=== PATIENT | male | born 1955 ===

== ENCOUNTER 2017-04-08 17:52 | Observation (INO) | payer MEDICARE, OTHER ==
--- NOTE | 2017-04-08 18:24 | ED PDOC ---
HPI: General Adult Time Seen by Provider: 04/08/17 18:10 Chief Complaint (Nursing): Abnormal Labs Chief Complaint (Provider): Abnormal Labs History Per: Patient, EMS History/Exam Limitations: no limitations Additional Complaint(s): William Casiano is a 61 year old male with a history of diabetes and hypertension that was brought in by EMS after being found dazed and confused in the street. Paramedics stated that glucose Accucheck at scene was 46, and that patient responded to IV glucose by becoming awake and alert. Patient states that he has no recollection of the event, and that he took his insulin and Metformin this morning, and ate as normal. He denies any chest pain, palpitations, or headache. Past Medical History Reviewed: Historical Data, Nursing Documentation, Vital Signs Vital Signs: Last Vital Signs Temp 98.6 F 04/08/17 17:54 Pulse 75 04/08/17 17:54 Resp 18 04/08/17 17:54 BP 171/101 H 04/08/17 17:54 Pulse Ox 99 04/08/17 18:29 - Medical History PMH: Diabetes, HTN - Family History Family History: States: Unknown Family Hx - Allergies Allergies/Adverse Reactions: Allergies Allergy/AdvReac Type Severity Reaction Status Date / Time No Known Allergies Allergy Verified 04/08/17 17:54 Review of Systems Constitutional: Positive for: Other (low blood glucose) Cardiovascular: Negative for: Chest Pain, Palpitations Neurological: Negative for: Headache Physical Exam - Reviewed Nursing Documentation Reviewed: Yes Vital Signs Reviewed: Yes - Physical Exam Appears: Positive for: Non-toxic, No Acute Distress Head Exam: Positive for: ATRAUMATIC, NORMOCEPHALIC Skin: Positive for: Normal Color, Warm Eye Exam: Positive for: Normal appearance, EOMI, PERRL Cardiovascular/Chest: Positive for: Regular Rate, Rhythm. Negative for: Murmur Respiratory: Positive for: Normal Breath Sounds. Negative for: Wheezing Gastrointestinal/Abdominal: Positive for: Normal Exam, Soft. Negative for: Tenderness Extremity: Positive for: Normal ROM. Negative for: Tenderness, Swelling Neurologic/Psych: Positive for: Alert, Oriented. Negative for: Motor/Sensory Deficits - Laboratory Results Result Diagrams: 04/08/17 19:00 04/08/17 19:58 - ECG O2 Sat by Pulse Oximetry: 99 (RA) Pulse Ox Interpretation: Normal Medical Decision Making Medical Decision Making: Impression: Low Blood Glucose Plan: * EKG * CMP * CBC * Dextrose 5% * Reevaluation Scribe Attestation: Documented by Shira Crews, acting as a scribe for Jeremy Dacosta MD. Provider Scribe Attestation: All medical record entries made by the Scribe were at my direction and personally dictated by me. I have reviewed the chart and agree that the record accurately reflects my personal performance of the history, physical exam, medical decision making, and the department course for this patient. I have also personally directed, reviewed, and agree with the discharge instructions and disposition. Disposition - Clinical Impression Clinical Impression: Hypoglycemia - Patient ED Disposition Is Patient to be Admitted: Yes - Disposition Disposition Time: 20:48 Condition: FAIR Forms: [email or web address] (Persian) - Pt Status Changed To: Hospital Disposition Of: Observation - POA Present On Arrival: None
[2017-04-08] MEDS: Dextrose 5%/0.45% NS 1,000 ML IV SCH (18:47)
[2017-04-08 19:14] LABS: BASO % 0.3 % (0.0-2.0); EOS # 0.1 K/uL (0.0-0.7); EOS % 1.1 % (0.0-4.0); HEMOGLOBIN 9.7 g/dL (12.0-18.0); LYMPH % 12.6 % (20.0-40.0); MEAN CELL VOLUME 91.9 fl (80.0-94.0); MEAN CORPUSCULAR HEMOGLOBIN 27.9 pg (27.0-31.0); MEAN CORPUSCULAR HGB CONC 30.3 g/dL (33.0-37.0); MEAN PLATELET VOLUME 9.7 fl (7.2-11.7); MONO # 0.5 K/uL (0.0-0.8); MONO % 5.6 % (0.0-10.0); NEUT # 6.6 K/uL (1.8-7.0); NEUT % 80.4 % (50.0-75.0); NRBC % 0.1 % (0.0-0.0); RBC 3.46 Mil/uL (4.40-5.90); RED CELL DISTRIBUTION WIDTH 15.6 % (11.5-14.5); WHITE BLOOD COUNT 8.2 K/uL (4.8-10.8)
[2017-04-08 20:37] LABS: ALB/GLOB RATIO 1.2 (1.0-2.1); ALBUMIN 4.1 g/dL (3.5-5.0); ALT/SGPT 31 U/L (21-72); AST/SGOT 22 U/L (17-59); BLOOD UREA NITROGEN 27 mg/dl (9-20); CALCIUM 9.7 mg/dL (8.4-10.2); GFR AFRICAN-AMERICAN > 60; GFR NON-AFRICAN AMERICAN 51
[2017-04-08] MEDS ORDERED: Naproxen 500 MG TAB PO ONE (21:23)
[2017-04-09 06:22] LABS: ALB/GLOB RATIO 1.2 (1.0-2.1); ALBUMIN 4.1 g/dL (3.5-5.0); ALT/SGPT 31 U/L (21-72); AST/SGOT 21 U/L (17-59); BLOOD UREA NITROGEN 27 mg/dl (9-20); CALCIUM 9.8 mg/dL (8.4-10.2); GFR AFRICAN-AMERICAN > 60; GFR NON-AFRICAN AMERICAN 51; HDL CHOLESTEROL 47 MG/DL (30-70)
[2017-04-09 06:33] LABS: LDL CHOLESTEROL 89 mg/dL (0-129)
[2017-04-09] MEDS: Dextrose 5%/0.45% NS 1,000 ML IV SCH (06:35)
[2017-04-09] MEDS ORDERED: Insulin Regular 100 units/ml SC SCH (07:30)
[2017-04-09] MEDS: Insulin Regular 100 units/ml SC SCH ×2 (08:02→13:13)
[2017-04-09 08:18] VITALS: RESP 20
--- NOTE | 2017-04-09 08:35 | CARD ---
APPROVED REPORT EKG Measurement Heart [id number] <Conclusion> Normal sinus rhythm Normal ECG
[2017-04-09] MEDS ORDERED: Pantoprazole 20 mg EC Tab PO SCH (09:00)
[2017-04-09] MEDS ORDERED: Enoxaparin 40 mg Syringe SC SCH (09:00)
[2017-04-09 09:09] LABS: HEMOGLOBIN 13.3 g/dL (12.0-18.0); MEAN CORPUSCULAR HEMOGLOBIN 27.9 pg (27.0-31.0); MEAN CORPUSCULAR HGB CONC 33.6 g/dL (33.0-37.0); RBC 4.77 Mil/uL (4.40-5.90); RED CELL DISTRIBUTION WIDTH 14.4 % (11.5-14.5); WHITE BLOOD COUNT 7.5 K/uL (4.8-10.8)
[2017-04-09 09:14] LABS: MEAN CELL VOLUME 83.2 fl (80.0-94.0)
--- NOTE | 2017-04-09 11:09 | RAD ---
HISTORY: Diabetes mellitus. COMPARISON: 04/20/2009. TECHNIQUE: Chest PA and lateral FINDINGS: LUNGS: No active pulmonary disease. PLEURA: No significant pleural effusion identified. No pneumothorax apparent. CARDIOVASCULAR: No radiographic findings to suggest acute or significant cardiovascular disease. OSSEOUS STRUCTURES: No significant abnormalities. VISUALIZED UPPER ABDOMEN: Normal. OTHER FINDINGS: None. IMPRESSION: No active disease. No significant interval change compared to the prior examination(s).
[2017-04-09 12:41] VITALS: BP 133/75; PULSE 73; TEMP 98.1; O2SAT 96
--- NOTE | 2017-04-09 12:45 | RAD ---
PROCEDURE: Radiographs of the Left Shoulder HISTORY: Pain. No history of recent/ related trauma provided COMPARISON: No prior. FINDINGS: BONES: Normal. No fracture. JOINTS: Normal. Glenohumeral and acromioclavicular joints preserved. No osteoarthritis. SOFT TISSUES: Normal. OTHER FINDINGS: None. IMPRESSION: Normal radiographs of the left shoulder.
--- NOTE | 2017-04-09 16:14 | CP.PCM.HP ---
History of Present Illness - History of Present Illness History of Present Illness: 61 yr old M brought in to ED by ambulance for altered mental status and hypoglycemia. PMHx includes IDDM Type 2 and HTN. Denies chest pain, SOB, weakness, dizziness, nausea, vomiting or diarrhea. Per EMS records, patient became awake and alert s/p administration of IV glucose in the field. Patient reports he is adherent to his medications and had recently started to eat healthier without adjusting his insulin dose. PMD: Dr. Ahn Specialists: William Harrison-cardiology; Jeffery Adam- urology PMHx: IDDM Type 2 and HTN SurgHx: cataract surgery FMHx: mother at 56 from NH, HTN; father at 78 from AIDS complications , 4 siblings have DM Type 2 SocHx: denies tobacco, Etoh or drugs Medications: see medication reconciliation (Humulin and Lantus) Allergies: NKDA Present on Admission - Present on Admission Any Indicators Present on Admission: No History of DVT/PE: No History of Uncontrolled Diabetes: No Urinary Catheter: No Decubitus Ulcer Present: No History Surgical Site Infection Following: None Review of Systems - Review of Systems All systems: reviewed and no additional remarkable complaints except (for what is mentioned in the HPI) - Constitutional Constitutional: absent: Chills, Fever, Weight Loss - EENT Eyes: absent: Blurred Vision, Change in Vision Ears: absent: Disequilibrium, Dizziness Nose/Mouth/Throat: absent: Nasal Congestion, Nasal Discharge - Cardiovascular Cardiovascular: absent: Chest Pain, Dyspnea - Respiratory Respiratory: absent: Hemoptysis - Gastrointestinal Gastrointestinal: absent: Abdominal Pain, Nausea, Vomiting - Genitourinary Genitourinary: absent: Difficulty Urinating, Dysuria - Musculoskeletal Musculoskeletal: absent: Arthralgias, Muscle Weakness - Integumentary Integumentary: absent: Bleeding Lesions - Neurological Neurological: absent: Confusion, Focal Weakness - Psychiatric Psychiatric: absent: Anxiety - Endocrine Endocrine: absent: Polydipsia, Polyuria - Hematologic/Lymphatic Hematologic: absent: Easy Bleeding, Easy Bruising Past Patient History - Past Social History Smoking Status: Never Smoked - CARDIAC Hx Cardiac Disorders: Yes - ENDOCRINE/METABOLIC Hx Endocrine Disorders: Yes - MUSCULOSKELETAL/RHEUMATOLOGICAL Hx Falls: No - PSYCHIATRIC Hx Substance Use: No - ANESTHESIA Hx Anesthesia: No Hx Anesthesia Reactions: No Meds Allergies/Adverse Reactions: Allergies Allergy/AdvReac Type Severity Reaction Status Date / Time No Known Allergies Allergy Verified 04/08/17 17:54 Physical Exam - Constitutional Appears: No Acute Distress Additional comments: obese - Head Exam Head Exam: ATRAUMATIC, NORMOCEPHALIC - Eye Exam Eye Exam: EOMI Pupil Exam: PERRL - ENT Exam ENT Exam: Mucous Membranes Moist - Neck Exam Neck exam: Positive for: Full Rom. Negative for: Lymphadenopathy - Respiratory Exam Respiratory Exam: Clear to Auscultation Bilateral, NORMAL BREATHING PATTERN - Cardiovascular Exam Cardiovascular Exam: REGULAR RHYTHM, +S1, +S2 - GI/Abdominal Exam GI & Abdominal Exam: Normal Bowel Sounds, Soft (obese). absent: Tenderness - Extremities Exam Extremities exam: Positive for: full ROM (venous stasis skin changes bilaterally ). Negative for: pedal edema - Neurological Exam Neurological exam: Alert, CN II-XII Intact, Oriented x3 - Psychiatric Exam Psychiatric exam: Normal Affect, Normal Mood - Skin Skin Exam: Dry, Intact, Normal Color, Warm Results - Vital Signs Recent Vital Signs: Last Vital Signs Temp 98.1 F 04/09/17 12:40 Pulse 73 04/09/17 12:40 Resp 20 04/09/17 12:40 BP 133/75 04/09/17 12:40 Pulse Ox 96 04/09/17 12:40 - Labs Result Diagrams: 04/09/17 05:30 04/09/17 05:30 Labs: Laboratory Results - last 24 hr 04/08/17 04/08/17 04/08/17 18:04 19:00 19:00 WBC 8.2 RBC 3.46 L Hgb 9.7 L Hct 31.8 L MCV 91.9 MCH 27.9 MCHC 30.3 L RDW 15.6 H Plt Count 128 L MPV 9.7 Neut % (Auto) 80.4 H Lymph % (Auto) 12.6 L [place] % (Auto) 5.6 Eos % (Auto) 1.1 Baso % (Auto) 0.3 Neut # 6.6 Lymph # 1.0 [place] # 0.5 Eos # 0.1 Baso # 0.0 Sodium Cancelled Potassium Cancelled Chloride Cancelled Carbon Dioxide Cancelled Anion Gap Cancelled BUN Cancelled Creatinine Cancelled Est GFR ( Amer) Cancelled Est GFR (Non-Af Amer) Cancelled POC Glucose (mg/dL) 74 Random Glucose Cancelled Hemoglobin A1c Calcium Cancelled Total Bilirubin Cancelled AST Cancelled ALT Cancelled Alkaline Phosphatase Cancelled Total Protein Cancelled Albumin Cancelled Globulin Cancelled Albumin/Globulin Ratio Cancelled Triglycerides Cholesterol LDL Cholesterol Direct HDL Cholesterol TSH 3rd Generation 04/08/17 04/08/17 04/09/17 19:58 23:02 04:08 WBC RBC Hgb Hct MCV MCH MCHC RDW Plt Count MPV Neut % (Auto) Lymph % (Auto) [place] % (Auto) Eos % (Auto) Baso % (Auto) Neut # Lymph # [place] # Eos # Baso # Sodium 139 Potassium 4.4 Chloride 99 Carbon Dioxide 27 Anion Gap 17 BUN 27 H Creatinine 1.4 Est GFR ( Amer) > 60 Est GFR (Non-Af Amer) 51 POC Glucose (mg/dL) 119 H 82 Random Glucose 307 H Hemoglobin A1c Calcium 9.7 Total Bilirubin 0.3 AST 22 ALT 31 Alkaline Phosphatase 44 Total Protein 7.5 Albumin 4.1 Globulin 3.4 Albumin/Globulin Ratio 1.2 Triglycerides Cholesterol LDL Cholesterol Direct HDL Cholesterol TSH 3rd Generation 04/09/17 04/09/17 04/09/17 05:30 05:30 05:30 WBC 7.5 RBC 4.77 Hgb 13.3 D Hct 39.7 MCV 83.2 D MCH 27.9 MCHC 33.6 RDW 14.4 Plt Count 182 MPV Neut % (Auto) Lymph % (Auto) [place] % (Auto) Eos % (Auto) Baso % (Auto) Neut # Lymph # [place] # Eos # Baso # Sodium 142 Potassium 4.7 Chloride 103 Carbon Dioxide 28 Anion Gap 16 BUN 27 H Creatinine 1.4 Est GFR ( Amer) > 60 Est GFR (Non-Af Amer) 51 POC Glucose (mg/dL) Random Glucose 98 Hemoglobin A1c 7.1 H Calcium 9.8 Total Bilirubin 0.4 AST 21 ALT 31 Alkaline Phosphatase 47 Total Protein 7.4 Albumin 4.1 Globulin 3.3 Albumin/Globulin Ratio 1.2 Triglycerides 90 Cholesterol 168 LDL Cholesterol Direct 89 HDL Cholesterol 47 TSH 3rd Generation 2.34 04/09/17 04/09/17 05:31 10:54 WBC RBC Hgb Hct MCV MCH MCHC RDW Plt Count MPV Neut % (Auto) Lymph % (Auto) [place] % (Auto) Eos % (Auto) Baso % (Auto) Neut # Lymph # [place] # Eos # Baso # Sodium Potassium Chloride Carbon Dioxide Anion Gap BUN Creatinine Est GFR ( Amer) Est GFR (Non-Af Amer) POC Glucose (mg/dL) 103 242 H Random Glucose Hemoglobin A1c Calcium Total Bilirubin AST ALT Alkaline Phosphatase Total Protein Albumin Globulin Albumin/Globulin Ratio Triglycerides Cholesterol LDL Cholesterol Direct HDL Cholesterol TSH 3rd Generation Assessment & Plan - Assessment and Plan (Free Text) Assessment: 61 yr old M admitted for altered mental status and hypoglycemia. -admit to telemetry -D5 IV at 100mls/hr -f/u HbA1c, CMP, lipid panel, TSH, vit B12 -moderate carbohydrate diet -insulin detemir 20 units QHS -regular inuslin coverage scale ACHS -hypoglycemia protocol -DVT prophylaxis: Lovenox 40mg SC QD - Date & Time Date: 04/09/17 Time: 07:45
--- NOTE | 2017-04-09 16:24 | CP.PCM.DIS ---
Provider - Provider Date of Admission: 04/08/17 20:45 Attending physician: Amrik Angel MD Primary care physician: Dr. Lorenzana Time Spent in preparation of Discharge (in minutes): 30 Diagnosis - Discharge Diagnosis (1) Altered mental status Status: Resolved Priority: Low (2) Hypoglycemia Status: Resolved Priority: Low Hospital Course - Lab Results Lab Results: Most Recent Lab Values WBC 7.5 K/uL (4.8-10.8) 04/09/17 05:30 RBC 4.77 Mil/uL (4.40-5.90) 04/09/17 05:30 Hgb 13.3 g/dL (12.0-18.0) D 04/09/17 05:30 Hct 39.7 % (35.0-51.0) 04/09/17 05:30 MCV 83.2 fl (80.0-94.0) D 04/09/17 05:30 MCH 27.9 pg (27.0-31.0) 04/09/17 05:30 MCHC 33.6 g/dL (33.0-37.0) 04/09/17 05:30 RDW 14.4 % (11.5-14.5) 04/09/17 05:30 Plt Count 182 K/uL (130-400) 04/09/17 05:30 MPV 9.7 fl (7.2-11.7) 04/08/17 19:00 Neut % (Auto) 80.4 % (50.0-75.0) H 04/08/17 19:00 Lymph % (Auto) 12.6 % (20.0-40.0) L 04/08/17 19:00 [place] % (Auto) 5.6 % (0.0-10.0) 04/08/17 19:00 Eos % (Auto) 1.1 % (0.0-4.0) 04/08/17 19:00 Baso % (Auto) 0.3 % (0.0-2.0) 04/08/17 19:00 Neut # 6.6 K/uL (1.8-7.0) 04/08/17 19:00 Lymph # 1.0 K/uL (1.0-4.3) 04/08/17 19:00 [place] # 0.5 K/uL (0.0-0.8) 04/08/17 19:00 Eos # 0.1 K/uL (0.0-0.7) 04/08/17 19:00 Baso # 0.0 K/uL (0.0-0.2) 04/08/17 19:00 Sodium 142 mmol/l (132-148) 04/09/17 05:30 Potassium 4.7 MMOL/L (3.6-5.0) 04/09/17 05:30 Chloride 103 mmol/L (98-107) 04/09/17 05:30 Carbon Dioxide 28 mmol/L (22-30) 04/09/17 05:30 Anion Gap 16 (10-20) 04/09/17 05:30 BUN 27 mg/dl (9-20) H 04/09/17 05:30 Creatinine 1.4 mg/dl (0.8-1.5) 04/09/17 05:30 Est GFR ( Amer) > 60 04/09/17 05:30 Est GFR (Non-Af Amer) 51 04/09/17 05:30 POC Glucose (mg/dL) 242 mg/dL (65-110) H 04/09/17 10:54 Random Glucose 98 mg/dL (75-110) 04/09/17 05:30 Hemoglobin A1c 7.1 % (4.2-6.5) H 04/09/17 05:30 Calcium 9.8 mg/dL (8.4-10.2) 04/09/17 05:30 Total Bilirubin 0.4 mg/dl (0.2-1.3) 04/09/17 05:30 AST 21 U/L (17-59) 04/09/17 05:30 ALT 31 U/L (21-72) 04/09/17 05:30 Alkaline Phosphatase 47 U/L (38-126) 04/09/17 05:30 Total Protein 7.4 G/DL (6.3-8.2) 04/09/17 05:30 Albumin 4.1 g/dL (3.5-5.0) 04/09/17 05:30 Globulin 3.3 gm/dL (2.2-3.9) 04/09/17 05:30 Albumin/Globulin Ratio 1.2 (1.0-2.1) 04/09/17 05:30 Triglycerides 90 mg/DL (0-149) 04/09/17 05:30 Cholesterol 168 mg/dL (0-199) 04/09/17 05:30 LDL Cholesterol Direct 89 mg/dL (0-129) 04/09/17 05:30 HDL Cholesterol 47 MG/DL (30-70) 04/09/17 05:30 TSH 3rd Generation 2.34 mIU/ML (0.46-4.68) 04/09/17 05:30 - Hospital Course Hospital Course: 61 yr old M admitted for altered mental status and hypoglycemia. Patient improved and symptoms resolved s/p treatment with IV fluids and insulin. Patient was able to tolerate PO diet. Patient is medically stable for discharge with instructions to follow up with his PMD Dr. Lorenzana within 1 week, check your blood sugar fasting in AM and 2 hrs after meals, administer insulin according to scale only when consuming regular meals. Hypoglycemia precautions reviewed. - Date & Time of H&P Date of H&P: 04/09/17 Time of H&P: 07:45 Discharge Exam - Head Exam Head Exam: ATRAUMATIC, NORMOCEPHALIC - Eye Exam Eye Exam: EOMI - ENT Exam ENT Exam: Mucous Membranes Moist - Neck Exam Neck exam: Full Rom - Respiratory Exam Respiratory Exam: Clear to PA & Lateral, NORMAL BREATHING PATTERN - Cardiovascular Exam Cardiovascular Exam: REGULAR RHYTHM, +S1, +S2 - GI/Abdominal Exam GI & Abdominal Exam: Normal Bowel Sounds, Soft (obese) - Extremities Exam Extremities exam: full ROM - Neurological Exam Neurological exam: Alert, CN II-XII Intact, Oriented x3 - Psychiatric Exam Psychiatric exam: Normal Affect, Normal Mood - Skin Skin Exam: Dry, Normal Color, Warm Discharge Plan - Follow Up Plan Condition: FAIR Disposition: HOME/ ROUTINE Patient education suggested?: Yes Instructions: Diabetic Hypoglycemia (DC) Additional Instructions: -Follow up with PMD Dr. Lorenzana within 1 week. -check your blood sugar fasting in AM and 2 hrs after meals, administer insulin according to scale only when consuming regular meals Referrals: Kamryn Ahn MD [Family Provider] - Clinical Quality Measures - Date & Time of Discharge Summary Date of Discharge Summary: 04/09/17 Time of Discharge Summary: 16:28
[2017-04-09] MEDS ORDERED: Insulin Detemir 100 Units/ml Inj SC SCH (22:00)
== END 2017-04-09 14:55 | disposition home or self-care (01) ==
LOC: H.ER 17:52 → H.ERHOLD 20:45 → H.TEL 04-09 04:56
PROVIDERS: ADMIT Internal Medicine; ATTEND Internal Medicine
DX: R41.82 Altered mental status, unspecified (principal); E11.649 Type 2 diabetes mellitus with hypoglycemia without coma; I10 Essential (primary) hypertension; Z79.4 Long term (current) use of insulin; Z82.49 Family history of ischemic heart disease and other diseases of the circulatory system; Z83.0 Family history of human immunodeficiency virus [HIV] disease; Z83.3 Family history of diabetes mellitus
CPT/HCPCS: 36415; 71046; 73030; 80053; 80061; 82948; 83036; 84443; 85025; 85027; 93005; 99283; G0378; J1650; J7042

== ENCOUNTER 2017-06-03 08:57 | Day surgery (SDC) | payer MEDICARE, OTHER ==
[2017-06-03] MEDS ORDERED: Lactated Ringer's 500 ML IV ONE (09:16)
[2017-06-03 09:29] VITALS: TEMP 96.9
[2017-06-03] MEDS ORDERED: Midazolam 2 MG/2 ML VIAL ONE (11:20)
[2017-06-03] MEDS ORDERED: Propofol 10 mg/ml Inj (20 ML) ONE (11:21)
[2017-06-03 11:48] VITALS: O2SAT 99
[2017-06-03 12:05] VITALS: BP 104/54; PULSE 75; RESP 14
== END 2017-06-03 12:45 | disposition home or self-care (01) ==
LOC: H.ENDO 08:57
PROVIDERS: ATTEND Internal Medicine Gastroenterology
DX: Z12.11 Encounter for screening for malignant neoplasm of colon (principal); E11.9 Type 2 diabetes mellitus without complications; E78.5 Hyperlipidemia, unspecified; I10 Essential (primary) hypertension; K64.8 Other hemorrhoids
CPT/HCPCS: 45378; 82948; J2250; J2704; J7120

== ENCOUNTER 2017-12-20 20:46 | Inpatient (IN) | payer MEDICARE, OTHER ==
[2017-12-20] MEDS ORDERED: Sodium Chloride 0.9% 1,000 ML IV STA (22:15)
[2017-12-20 23:12] LABS: BASO # 0.1 K/uL (0.0-0.2); BASO % 0.6 % (0.0-2.0); EOS % 0.2 % (0.0-4.0); HEMOGLOBIN 12.9 g/dL (12.0-18.0); LYMPH # 1.3 K/uL (1.0-4.3); LYMPH % 7.6 % (20.0-40.0); MEAN CORPUSCULAR HEMOGLOBIN 28.7 pg (27.0-31.0); MEAN CORPUSCULAR HGB CONC 33.8 g/dL (33.0-37.0); MEAN PLATELET VOLUME 10.2 fl (7.2-11.7); MONO # 1.4 K/uL (0.0-0.8); MONO % 7.7 % (0.0-10.0); NEUT # 14.7 K/uL (1.8-7.0); NEUT % 83.9 % (50.0-75.0); PLATELET COUNT 264 K/uL (130-400); RED CELL DISTRIBUTION WIDTH 14.4 % (11.5-14.5); WHITE BLOOD COUNT 17.6 K/uL (4.8-10.8)
[2017-12-20 23:41] LABS: ALBUMIN 3.9 g/dL (3.5-5.0); ALT/SGPT 36 U/L (21-72); AST/SGOT 28 U/L (17-59); BLOOD UREA NITROGEN 36 mg/dl (9-20); CALCIUM 9.7 mg/dL (8.4-10.2); GFR NON-AFRICAN AMERICAN 44; LIPASE 137 U/L (23-300)
[2017-12-20] MEDS ORDERED: Insulin Regular 100 units/ml IV STA (23:44)
--- NOTE | 2017-12-20 23:46 | ED PDOC ---
HPI: Abdomen Time Seen by Provider: 12/20/17 21:54 Chief Complaint (Nursing): Abdominal Pain Chief Complaint (Provider): Abdominal Pain History Per: Patient, Family (daughters at bedside) History/Exam Limitations: no limitations Onset/Duration Of Symptoms: Days (x6) Outside of [place] travel?: No Current Symptoms Are (Timing): Still Present Location Of Pain/Discomfort: LLQ, Other (rectal) Quality Of Discomfort: "Pain" Associated Symptoms: Vomiting, Loss Of Appetite, Other (rectal pain). denies: F ever, Chills, Nausea, Diarrhea, Back Pain, Chest Pain, Constipation, Urinary Symptoms Additional Complaint(s): 62 year old male with a history of DM, high cholesterol, gout, neuropathy and HTN presents to the ED complaining of left lower abdominal pain associated decreased appetite and fatigue for the last 6 days. He also reports his hemorrhoids have been flaring up and he has pain when defecating, but no blood in stool. He reports one episode of nonbloody nonbilious vomiting on Saturday. Patient denies recent travel, chest pain, cough, shortness of breath, fever, ch ills, headache, dizziness or any other complaints. Patient is complaint with his medications, he takes metformin for DM. PMD: Dr. Kamryn Ahn Past Medical History Reviewed: Historical Data, Nursing Documentation, Vital Signs Vital Signs: Last Vital Signs Temp 98 F 12/20/17 20:50 Pulse 106 H 12/20/17 20:50 Resp 18 12/20/17 20:50 BP 118/72 12/20/17 20:50 Pulse Ox 99 12/20/17 20:50 - Medical History PMH: Cardia Arrhythmia, Diabetes, HTN, Hypercholesterolemia Other PMH: neuropathy, gout - Surgical History Other surgeries: hemorrhoidectomy and prodcedure to knee. - Family History Family History: States: Unknown Family Hx - Social History Current smoker - smoking cessation education provided: No Ex-Smoker (has not smoked in the last 12 months): No Alcohol: None Drugs: Denies - Home Medications Home Medications: Ambulatory Orders Medication Instructions Recorded RX: MetFORMIN [glucoPHAGE] 1,000 mg PO BID 04/08/17 Doxazosin [Cardura] 2 mg PO DAILY 06/03/17 Losartan/Hydrochlorothiazide 1 each PO DAILY 06/03/17 [Losartan-Hctz 100-25 mg Tab] Metoprolol Succinate XL [Toprol XL] 200 mg PO DAILY 06/03/17 Pravastatin Sodium [Pravachol] 40 mg PO DAILY 06/03/17 Allopurinol [Zyloprim] 100 mg PO DAILY 12/21/17 RX: Aspirin [Aspirin Chewable] 81 mg PO DAILY 12/21/17 amLODIPine [Norvasc] 5 mg PO HS 12/21/17 - Allergies Allergies/Adverse Reactions: Allergies Allergy/AdvReac Type Severity Reaction Status Date / Time No Known Allergies Allergy Verified 12/20/17 20:50 Review of Systems ROS Statement: Except As Marked, All Systems Reviewed And Found Negative Gastrointestinal: Positive for: Vomiting, Abdominal Pain (LLQ), Rectal Pain (when defecating). Negative for: Hematochezia Physical Exam - Reviewed Nursing Documentation Reviewed: Yes Vital Signs Reviewed: Yes - Physical Exam Comments: GENERAL APPEARANCE: Patient is awake, alert, oriented x 3, resting comfortably. SKIN: Warm, dry; (-) cyanosis. EYES: (-) conjunctival pallor, (-) scleral icterus. ENMT: Mucous membranes moist. Airway patent, (-) stridor. NECK: Supple, FROM(-) tenderness, (-) stiffness, (-) lymphadenopathy. CHEST AND RESPIRATORY: (-) rales, (-) rhonchi, (-) wheezes; breath sounds equal bilaterally. Respirations even and nonlabored. HEART AND CARDIOVASCULAR: (-) irregularity ABDOMEN AND GI: Soft(-) distention. Bowel sounds active x4; (+) tenderness in LLQ (-) guarding, (-) rebound, (-) palpable masses, (-) CVA tenderness. EXTREMITIES: (-) deformity NEURO AND PSYCH: Mental status as above; (-) focal findings. Speech: clear. (-) facial asymmetry (-) aphasia. - Laboratory Results Result Diagrams: 12/22/17 05:45 12/22/17 05:45 Urine dip results: Positive for: Blood (trace-lysed), Ketones (trace), Glucose (500), Protein (30). Negative for: Leukocyte Esterase, Nitrate, Bilirubin - ECG O2 Sat by Pulse Oximetry: 99 (RA) Pulse Ox Interpretation: Normal Medical Decision Making Medical Decision Making: Time: 2214 Initial Impression: hyperglycemia and abdominal pain, rule out diverticulitis Initial Plan: --CT abd and pelvis --EKG --CMP --Lipase --Troponin --Urine dip --CBC with differentials --Protonix INJ 40 mg IV --Toradol 15 mg IM --Zofran 4 mg PO --Blood culture --Glucose 2345 Random Glucose 505 NS 1L and 10 units insulin IVP ordered. 0020 Repeat HR: 88 Udip reviewed. U/A and U/C ordered. Additional 1L NS ordered. 0145 CT abd/pel with no contrast reviewed: perianal abscess formation containing gas densities. Surrounding perineal cellulitis noted. Consult placed to general surgery resident. Consult placed to Dr Angel, covering for PMD. Case discussed with operating room surgical technologist, Dr Ford, who is agreeable to evalua tion in ED. 0220 Surgery at bedside. Pending call back from Dr Angel. 0240 Repeat Accucheck: 314 Vancomycin and Zosyn ordered. VBG ordered. Additional 6 units insulin ordered. Arrangements made for admission. 0340 Tylenol 650mg PO ordered for additional relief. [address] Angel, who is agreeable to admission. Recommends Dr Martinez for surgical consult. Scribe Attestation: Documented by Pati Rivera, acting as a scribe for Tamika Schilling PA-C Provider Scribe Attestation: All medical record entries made by the Scribe were at my direction and personally dictated by me. I have reviewed the chart and agree that the record accurately reflects my personal performance of the history, physical exam, medical decision making, and the department course for this patient. I have also personally directed, reviewed, and agree with the discharge instructions and disposition. Disposition - Clinical Impression Clinical Impression: Perianal abscess, Hyperglycemia, Abdominal pain - Patient ED Disposition Is Patient to be Admitted: Yes Discussed With : Amrik Angel Doctor Will See Patient In The: Hospital Counseled Patient/Family Regarding: Studies Performed, Diagnosis - Disposition Disposition Time: 02:51 Condition: FAIR - Pt Status Changed To: Hospital Disposition Of: Inpatient - Admit Certification Admit to Inpatient:: After my assessment, the patient will require hospitalization for at least two midnights. This is because of the severity of symptoms shown, intensity of services needed, and/or the medical risk in this patient being treated as an outpatient. - POA Present On Arrival: Poor Glycemic Control Results - Lab Results Lab Results: 12/21/17 12/20/17 12/20/17 01:00 23:09 23:09 WBC 17.6 H D RBC 4.50 Hgb 12.9 Hct 38.3 MCV 85.0 MCH 28.7 MCHC 33.8 RDW 14.4 Plt Count 264 MPV 10.2 Neut % (Auto) 83.9 H Lymph % (Auto) 7.6 L [place] % (Auto) 7.7 Eos % (Auto) 0.2 Baso % (Auto) 0.6 Neut # (Auto) 14.7 H Lymph # (Auto) 1.3 [place] # (Auto) 1.4 H Eos # (Auto) 0.0 Baso # (Auto) 0.1 Neutrophils % (Manual) 79 H Band Neutrophils % 2 Lymphocytes % (Manual) 9 L Reactive Lymphs % 1 H Monocytes % (Manual) 7 Eosinophils % (Manual) 1 Myelocytes % 1 H Platelet Estimate Normal Plt Clumps, EDTA Present Hypochromasia (manual) Slight Anisocytosis (manual) Slight Ovalocytes Slight Acanthocytes (Spur) Slight Sodium 133 Potassium 4.6 Chloride 91 L Carbon Dioxide 30 Anion Gap 17 BUN 36 H Creatinine 1.6 H Est GFR ( Amer) 53 Est GFR (Non-Af Amer) 44 Random Glucose 505 H* D Calcium 9.7 Total Bilirubin 0.6 AST 28 ALT 36 Alkaline Phosphatase 94 Troponin I < 0.0120 Total Protein 8.0 Albumin 3.9 Globulin 4.1 H Albumin/Globulin Ratio 1.0 Lipase 137 Urine Color Yellow Urine Clarity Slighty-cloudy Urine pH 5.0 Ur Specific [place] 1.022 Urine Protein 30 Urine Glucose (UA) >=500 Urine Ketones Negative Urine Blood Small Urine Nitrate Negative Urine Bilirubin Negative Urine Urobilinogen 0.2-1.0 Ur Leukocyte Esterase Neg Urine RBC (Auto) 5 H Urine Microscopic WBC 2 Urine Bacteria Rare Hyaline Casts 6-10 H
[2017-12-21] MEDS ORDERED: Insulin Regular 100 units/ml ONE (00:12)
[2017-12-21] MEDS: Sodium Chloride 0.9% 1,000 ML IV SCH ×2 (00:13→19:38)
[2017-12-21 01:09] LABS: ACANTHOCYTES SLIGHT; ANISOCYTOSIS SLIGHT; BANDS 2 % (0-2); EOSINOPHIL 1 % (0-7); HYPOCHROMIC SLIGHT; LYMPHOCYTE 9 % (20-50); MONOCYTE 7 % (0-10); MYELOCYTE 1 % (0-0); NEUTROPHIL 79 % (42-75); PLATELET ESTIMATE NORMAL (NORMAL); REACTIVE LYMPHOCYTES 1 % (0-0); TOTAL CELLS COUNTED 100
[2017-12-21 01:10] LABS: OVALOCYTES SLIGHT
[2017-12-21 01:13] LABS: PLATELET CLUMPS PRESENT
[2017-12-21 01:17] LABS: URINE BACTERIA RARE (<OCC); URINE BILIRUBIN NEGATIVE (NEGATIVE); URINE BLOOD SMALL (NEGATIVE); URINE CLARITY SLIGHTY-CLOUDY (Clear); URINE COLOR YELLOW (YELLOW); URINE GLUCOSE (UA) >=500 mg/dL (Normal); URINE LEUKOCYTE ESTERASE NEG Leu/uL (Negative); URINE PROTEIN 30 mg/dL (NEGATIVE); URINE UROBILINOGEN 0.2-1.0 mg/dL (0.2-1.0)
[2017-12-21] MEDS ORDERED: Insulin Regular 100 units/ml IVP STA (02:57)
[2017-12-21] MEDS ORDERED: Piperacillin/Tazobact 3.375 gm Inj IVPB ONE (03:24)
[2017-12-21] MEDS: Piperacillin/Tazobact 3.375 GM in Sodium Chloride 0.9% 100 ML IVPB SCH ×4 (03:34→20:48)
[2017-12-21 03:55] LABS: VENOUS BLOOD GAS BASE EXCESS 1.7 mmol/L (0.0-2.0); VENOUS BLOOD GAS PCO2 45 mmHg (40-60); VENOUS BLOOD GAS PO2 15 mm/Hg (30-55); VENOUS BLOOD PH 7.39 (7.32-7.43)
[2017-12-21] MEDS ORDERED: Vancomycin 1 g Inj ONE (04:45)
--- NOTE | 2017-12-21 08:09 | CP.PCM.CON ---
<Jarvis Ford - Last Filed: 12/21/17 07:59> History of Present Illness - History of Present Illness History of Present Illness: Surgery: Dr. Dumont CC: Rectal pain HPI: 62M w. pmh of HTN, hypercholesterolemia, and DM presents with worsening rectal pain x 1 week. Pain is constant and described as stabbing. Pain is worse with BM. Pt states that his BMs have been normal, non-bloody, no diarrhea. Pt has never had this pain before. He does report nausea, no vomiting. He does have fever and chills. CT in ED showed horse shoe perirectal abscess for which surgery has been consulted. PMH: HTN, cholesterol, DM PSH: eyes NKDA Social: no etoh/tobacco/drugs Fhx: non-contributory Review of Systems - Review of Systems All systems: reviewed and no additional remarkable complaints except (HPI) Past Patient History - Past Medical History & Family History Past Medical History?: Yes - Past Social History Smoking Status: Never Smoked - CARDIAC Hx Cardiac Disorders: Yes Hx Cardia Arrhythmia: Yes Hx Hypercholesterolemia: Yes Hx Hypertension: Yes - PULMONARY Hx Respiratory Disorders: No - NEUROLOGICAL Hx Neurological Disorder: No - HEENT Hx HEENT Problems: No - RENAL Hx Chronic Kidney Disease: No - ENDOCRINE/METABOLIC Hx Endocrine Disorders: Yes (DM) Hx Diabetes Mellitus Type 2: Yes - HEMATOLOGICAL/ONCOLOGICAL Hx Blood Disorders: No - INTEGUMENTARY Hx Dermatological Problems: No - MUSCULOSKELETAL/RHEUMATOLOGICAL Hx Musculoskeletal Disorders: No Hx Falls: No - GASTROINTESTINAL Hx Gastrointestinal Disorders: No - GENITOURINARY/GYNECOLOGICAL Hx Genitourinary Disorders: No - PSYCHIATRIC Hx Psychophysiologic Disorder: No Hx Substance Use: No - SURGICAL HISTORY Hx Surgeries: Yes Other/Comment: RT FOOT SURGERY - ANESTHESIA Hx Anesthesia: Yes Hx Anesthesia Reactions: No Hx Malignant Hyperthermia: No Meds Allergies/Adverse Reactions: Allergies Allergy/AdvReac Type Severity Reaction Status Date / Time No Known Allergies Allergy Verified 12/20/17 20:50 - Medications Medications: Current Medications Sodium Chloride (Sodium Chloride 0.9%) 1,000 mls @ 1,000 mls/hr IV .Q1H MAMADOU Stop: 12/21/17 23:45 Last Admin: 12/21/17 00:13 Dose: 1,000 mls/hr Vancomycin HCl 1 gm/ Sodium (Chloride) 250 mls @ 166.667 mls/hr IVPB Q12H MAMADOU; Protocol Last Admin: 12/21/17 04:52 Dose: 166.667 mls/hr Piperacillin Sod/Tazobactam (Sod 3.375 gm/ Sodium Chloride) 100 mls @ 100 mls/hr IVPB Q6H MAMADOU; Protocol Last Admin: 12/21/17 03:34 Dose: 100 mls/hr Physical Exam - Constitutional Appears: Non-toxic, No Acute Distress - Head Exam Head Exam: ATRAUMATIC, NORMOCEPHALIC - Eye Exam Eye Exam: EOMI - ENT Exam ENT Exam: Mucous Membranes Moist - Neck Exam Neck exam: Positive for: Full Rom - Respiratory Exam Respiratory Exam: NORMAL BREATHING PATTERN. absent: Accessory Muscle Use, Respiratory Distress - Cardiovascular Exam Cardiovascular Exam: REGULAR RHYTHM - GI/Abdominal Exam GI & Abdominal Exam: Soft. absent: Distended, Firm, Guarding, Rigid, Tenderness - Rectal Exam Additional comments: tender to palpation, +Induration/fluctuance, foul smelling pus draining - Extremities Exam Extremities exam: Negative for: calf tenderness, pedal edema - Neurological Exam Neurological exam: Alert, Oriented x3 Results - Vital Signs Recent Vital Signs: Last Vital Signs Temp 98.4 F 12/21/17 07:46 Pulse 77 12/21/17 07:46 Resp 19 12/21/17 07:46 BP 159/82 H 12/21/17 07:46 Pulse Ox 99 12/21/17 07:46 - Labs Result Diagrams: 12/20/17 23:09 12/20/17 23:09 Labs: Laboratory Results - last 24 hr 12/20/17 12/20/17 12/21/17 23:09 23:09 01:00 WBC 17.6 H D RBC 4.50 Hgb 12.9 Hct 38.3 MCV 85.0 MCH 28.7 MCHC 33.8 RDW 14.4 Plt Count 264 MPV 10.2 Neut % (Auto) 83.9 H Lymph % (Auto) 7.6 L [place] % (Auto) 7.7 Eos % (Auto) 0.2 Baso % (Auto) 0.6 Neut # (Auto) 14.7 H Lymph # (Auto) 1.3 [place] # (Auto) 1.4 H Eos # (Auto) 0.0 Baso # (Auto) 0.1 Neutrophils % (Manual) 79 H Band Neutrophils % 2 Lymphocytes % (Manual) 9 L Reactive Lymphs % 1 H Monocytes % (Manual) 7 Eosinophils % (Manual) 1 Myelocytes % 1 H Platelet Estimate Normal Plt Clumps, EDTA Present Hypochromasia (manual) Slight Anisocytosis (manual) Slight Ovalocytes Slight Acanthocytes (Spur) Slight pO2 VBG pH VBG pCO2 VBG HCO3 VBG Total CO2 VBG O2 Sat (Calc) VBG Base Excess VBG Potassium Glucose Lactate FiO2 Sodium 133 Potassium 4.6 Chloride 91 L Carbon Dioxide 30 Anion Gap 17 BUN 36 H Creatinine 1.6 H Est GFR ( Amer) 53 Est GFR (Non-Af Amer) 44 Random Glucose 505 H* D Calcium 9.7 Total Bilirubin 0.6 AST 28 ALT 36 Alkaline Phosphatase 94 Troponin I < 0.0120 Total Protein 8.0 Albumin 3.9 Globulin 4.1 H Albumin/Globulin Ratio 1.0 Lipase 137 Venous Blood Potassium Urine Color Yellow Urine Clarity Slighty-cloudy Urine pH 5.0 Ur Specific [place] 1.022 Urine Protein 30 Urine Glucose (UA) >=500 Urine Ketones Negative Urine Blood Small Urine Nitrate Negative Urine Bilirubin Negative Urine Urobilinogen 0.2-1.0 Ur Leukocyte Esterase Neg Urine RBC (Auto) 5 H Urine Microscopic WBC 2 Urine Bacteria Rare Hyaline Casts 6-10 H 12/21/17 03:46 WBC RBC Hgb Hct MCV MCH MCHC RDW Plt Count MPV Neut % (Auto) Lymph % (Auto) [place] % (Auto) Eos % (Auto) Baso % (Auto) Neut # (Auto) Lymph # (Auto) [place] # (Auto) Eos # (Auto) Baso # (Auto) Neutrophils % (Manual) Band Neutrophils % Lymphocytes % (Manual) Reactive Lymphs % Monocytes % (Manual) Eosinophils % (Manual) Myelocytes % Platelet Estimate Plt Clumps, EDTA Hypochromasia (manual) Anisocytosis (manual) Ovalocytes Acanthocytes (Spur) pO2 15 L VBG pH 7.39 VBG pCO2 45 VBG HCO3 24.1 VBG Total CO2 28.6 H VBG O2 Sat (Calc) 19.3 L VBG Base Excess 1.7 VBG Potassium 3.8 Glucose 283 H Lactate 1.5 FiO2 21.0 Sodium 132.0 Potassium Chloride 97.0 L Carbon Dioxide Anion Gap BUN Creatinine Est GFR ( Amer) Est GFR (Non-Af Amer) Random Glucose Calcium Total Bilirubin AST ALT Alkaline Phosphatase Troponin I Total Protein Albumin Globulin Albumin/Globulin Ratio Lipase Venous Blood Potassium 3.8 Urine Color Urine Clarity Urine pH Ur Specific [place] Urine Protein Urine Glucose (UA) Urine Ketones Urine Blood Urine Nitrate Urine Bilirubin Urine Urobilinogen Ur Leukocyte Esterase Urine RBC (Auto) Urine Microscopic WBC Urine Bacteria Hyaline Casts - Imaging and Cardiology CT scan - pelvis Status: Image reviewed by me Assessment & Plan - Assessment and Plan (Free Text) Assessment: 62M w. ellis-rectal abscess -OR today for I&D -NPO -IVF -c/w abx -d/w attending Liliana PGY4 <Saeid Dumont - Last Filed: 12/21/17 16:59> History of Present Illness - History of Present Illness History of Present Illness: Patient was seen and examined at the bedside. Agree with resident's note above. Meds - Medications Medications: Current Medications Allopurinol (Zyloprim) 100 mg PO DAILY [facility] Last Admin: 12/21/17 10:51 Dose: Not Given Amlodipine Besylate (Norvasc) 5 mg PO [facility] Aspirin (Aspirin Chewable) 81 mg PO DAILY [facility] Last Admin: 12/21/17 10:50 Dose: Not Given Doxazosin Mesylate (Cardura) 2 mg PO DAILY [facility] Last Admin: 12/21/17 10:51 Dose: Not Given Hydrochlorothiazide (Hydrodiuril) 25 mg PO DAILY [facility] Last Admin: 12/21/17 11:52 Dose: 25 mg Hydromorphone HCl (Dilaudid) 0.5 mg IVP Q4 PRN PRN Reason: Pain, moderate (4-7) Sodium Chloride (Sodium Chloride 0.9%) 1,000 mls @ 1,000 mls/hr IV .Q1H [facility] Stop: 12/21/17 23:45 Last Admin: 12/21/17 00:13 Dose: 1,000 mls/hr Vancomycin HCl 1 gm/ Sodium (Chloride) 250 mls @ 166.667 mls/hr IVPB Q12H [facility]; Protocol Last Admin: 12/21/17 04:52 Dose: 166.667 mls/hr Piperacillin Sod/Tazobactam (Sod 3.375 gm/ Sodium Chloride) 100 mls @ 100 mls/hr IVPB Q6H [facility]; Protocol Last Admin: 12/21/17 09:24 Dose: 100 mls/hr Sodium Chloride (Sodium Chloride 0.9%) 1,000 mls @ 100 mls/hr IV .Q10H [facility] Insulin Human Regular (Humulin R) 0 units SC ACCU-CHECK [facility]; Protocol Last Admin: 12/21/17 15:24 Dose: 8 units Ketorolac Tromethamine (Toradol) 30 mg IVP ONCE PRN PRN Reason: Pain, Mild (1-3) Stop: 12/21/17 18:45 Losartan Potassium (Cozaar) 100 mg PO DAILY [facility] Last Admin: 12/21/17 11:52 Dose: 100 mg Metformin HCl (Glucophage) 1,000 mg PO BID [facility] Last Admin: 12/21/17 10:51 Dose: Not Given Metoprolol Succinate (Toprol Xl) 200 mg PO DAILY [facility] Last Admin: 12/21/17 11:10 Dose: 200 mg Morphine Sulfate (Morphine) 1 mg IVP Q15M PRN PRN Reason: Pain, moderate (4-7) Stop: 12/21/17 18:45 Ondansetron HCl (Zofran Inj) 4 mg IVP ONCE PRN PRN Reason: Nausea/Vomiting Stop: 12/21/17 18:46 Pravastatin Sodium (Pravachol) 40 mg PO DAILY [facility] Last Admin: 12/21/17 10:51 Dose: Not Given Results - Vital Signs Recent Vital Signs: Last Vital Signs Temp 97.4 F L 12/21/17 16:43 Pulse 83 12/21/17 16:43 Resp 17 12/21/17 16:43 BP 105/62 12/21/17 16:43 Pulse Ox 100 12/21/17 16:43 - Labs Result Diagrams: 12/20/17 23:09 12/20/17 23:09 Labs: Laboratory Results - last 24 hr 12/20/17 12/20/17 12/20/17 23:09 23:09 23:42 WBC 17.6 H D RBC 4.50 Hgb 12.9 Hct 38.3 MCV 85.0 MCH 28.7 MCHC 33.8 RDW 14.4 Plt Count 264 MPV 10.2 Neut % (Auto) 83.9 H Lymph % (Auto) 7.6 L [place] % (Auto) 7.7 Eos % (Auto) 0.2 Baso % (Auto) 0.6 Neut # (Auto) 14.7 H Lymph # (Auto) 1.3 [place] # (Auto) 1.4 H Eos # (Auto) 0.0 Baso # (Auto) 0.1 Neutrophils % (Manual) 79 H Band Neutrophils % 2 Lymphocytes % (Manual) 9 L Reactive Lymphs % 1 H Monocytes % (Manual) 7 Eosinophils % (Manual) 1 Myelocytes % 1 H Platelet Estimate Normal Plt Clumps, EDTA Present Hypochromasia (manual) Slight Anisocytosis (manual) Slight Ovalocytes Slight Acanthocytes (Spur) Slight PT INR APTT pO2 VBG pH VBG pCO2 VBG HCO3 VBG Total CO2 VBG O2 Sat (Calc) VBG Base Excess VBG Potassium Glucose Lactate FiO2 Sodium 133 Potassium 4.6 Chloride 91 L Carbon Dioxide 30 Anion Gap 17 BUN 36 H Creatinine 1.6 H Est GFR ( Amer) 53 Est GFR (Non-Af Amer) 44 POC Glucose (mg/dL) 486 H* Random Glucose 505 H* D Calcium 9.7 Total Bilirubin 0.6 AST 28 ALT 36 Alkaline Phosphatase 94 Troponin I < 0.0120 Total Protein 8.0 Albumin 3.9 Globulin 4.1 H Albumin/Globulin Ratio 1.0 Lipase 137 Venous Blood Potassium Urine Color Urine Clarity Urine pH Ur Specific [place] Urine Protein Urine Glucose (UA) Urine Ketones Urine Blood Urine Nitrate Urine Bilirubin Urine Urobilinogen Ur Leukocyte Esterase Urine RBC (Auto) Urine Microscopic WBC Urine Bacteria Hyaline Casts 12/21/17 12/21/17 12/21/17 01:00 02:30 03:46 WBC RBC Hgb Hct MCV MCH MCHC RDW Plt Count MPV Neut % (Auto) Lymph % (Auto) [place] % (Auto) Eos % (Auto) Baso % (Auto) Neut # (Auto) Lymph # (Auto) [place] # (Auto) Eos # (Auto) Baso # (Auto) Neutrophils % (Manual) Band Neutrophils % Lymphocytes % (Manual) Reactive Lymphs % Monocytes % (Manual) Eosinophils % (Manual) Myelocytes % Platelet Estimate Plt Clumps, EDTA Hypochromasia (manual) Anisocytosis (manual) Ovalocytes Acanthocytes (Spur) PT INR APTT pO2 15 L VBG pH 7.39 VBG pCO2 45 VBG HCO3 24.1 VBG Total CO2 28.6 H VBG O2 Sat (Calc) 19.3 L VBG Base Excess 1.7 VBG Potassium 3.8 Glucose 283 H Lactate 1.5 FiO2 21.0 Sodium 132.0 Potassium Chloride 97.0 L Carbon Dioxide Anion Gap BUN Creatinine Est GFR ( Amer) Est GFR (Non-Af Amer) POC Glucose (mg/dL) 314 H Random Glucose Calcium Total Bilirubin AST ALT Alkaline Phosphatase Troponin I Total Protein Albumin Globulin Albumin/Globulin Ratio Lipase Venous Blood Potassium 3.8 Urine Color Yellow Urine Clarity Slighty-cloudy Urine pH 5.0 Ur Specific [place] 1.022 Urine Protein 30 Urine Glucose (UA) >=500 Urine Ketones Negative Urine Blood Small Urine Nitrate Negative Urine Bilirubin Negative Urine Urobilinogen 0.2-1.0 Ur Leukocyte Esterase Neg Urine RBC (Auto) 5 H Urine Microscopic WBC 2 Urine Bacteria Rare Hyaline Casts 6-10 H 12/21/17 12/21/17 12/21/17 04:49 07:45 10:50 WBC RBC Hgb Hct MCV MCH MCHC RDW Plt Count MPV Neut % (Auto) Lymph % (Auto) [place] % (Auto) Eos % (Auto) Baso % (Auto) Neut # (Auto) Lymph # (Auto) [place] # (Auto) Eos # (Auto) Baso # (Auto) Neutrophils % (Manual) Band Neutrophils % Lymphocytes % (Manual) Reactive Lymphs % Monocytes % (Manual) Eosinophils % (Manual) Myelocytes % Platelet Estimate Plt Clumps, EDTA Hypochromasia (manual) Anisocytosis (manual) Ovalocytes Acanthocytes (Spur) PT 12.3 INR 1.1 APTT 26.1 pO2 VBG pH VBG pCO2 VBG HCO3 VBG Total CO2 VBG O2 Sat (Calc) VBG Base Excess VBG Potassium Glucose Lactate FiO2 Sodium Potassium Chloride Carbon Dioxide Anion Gap BUN Creatinine Est GFR ( Amer) Est GFR (Non-Af Amer) POC Glucose (mg/dL) 339 H 313 H Random Glucose Calcium Total Bilirubin AST ALT Alkaline Phosphatase Troponin I Total Protein Albumin Globulin Albumin/Globulin Ratio Lipase Venous Blood Potassium Urine Color Urine Clarity Urine pH Ur Specific [place] Urine Protein Urine Glucose (UA) Urine Ketones Urine Blood Urine Nitrate Urine Bilirubin Urine Urobilinogen Ur Leukocyte Esterase Urine RBC (Auto) Urine Microscopic WBC Urine Bacteria Hyaline Casts 12/21/17 12/21/17 15:17 16:47 WBC RBC Hgb Hct MCV MCH MCHC RDW Plt Count MPV Neut % (Auto) Lymph % (Auto) [place] % (Auto) Eos % (Auto) Baso % (Auto) Neut # (Auto) Lymph # (Auto) [place] # (Auto) Eos # (Auto) Baso # (Auto) Neutrophils % (Manual) Band Neutrophils % Lymphocytes % (Manual) Reactive Lymphs % Monocytes % (Manual) Eosinophils % (Manual) Myelocytes % Platelet Estimate Plt Clumps, EDTA Hypochromasia (manual) Anisocytosis (manual) Ovalocytes Acanthocytes (Spur) PT INR APTT pO2 VBG pH VBG pCO2 VBG HCO3 VBG Total CO2 VBG O2 Sat (Calc) VBG Base Excess VBG Potassium Glucose Lactate FiO2 Sodium Potassium Chloride Carbon Dioxide Anion Gap BUN Creatinine Est GFR ( Amer) Est GFR (Non-Af Amer) POC Glucose (mg/dL) 351 H 303 H Random Glucose Calcium Total Bilirubin AST ALT Alkaline Phosphatase Troponin I Total Protein Albumin Globulin Albumin/Globulin Ratio Lipase Venous Blood Potassium Urine Color Urine Clarity Urine pH Ur Specific [place] Urine Protein Urine Glucose (UA) Urine Ketones Urine Blood Urine Nitrate Urine Bilirubin Urine Urobilinogen Ur Leukocyte Esterase Urine RBC (Auto) Urine Microscopic WBC Urine Bacteria Hyaline Casts
[2017-12-21] MEDS ORDERED: HYDROCHLOROTHIAZIDE PO SCH (09:00)
[2017-12-21] MEDS ORDERED: LOSARTAN PO SCH (09:00)
[2017-12-21] MEDS ORDERED: METOPROLOL SUCCINATE 200 MG PO SCH (09:00)
[2017-12-21 09:12] LABS: INR 1.1; PROTHROMBIN TIME 12.3 Seconds (9.8-13.1)
[2017-12-21 09:14] LABS: PARTIAL THROMBOPLASTIN TIME 26.1 Seconds (25.6-37.1)
--- NOTE | 2017-12-21 10:23 | CARD ---
APPROVED REPORT Date of service: 12/20/2017 EKG Measurement Heart [id number] <Conclusion> Normal sinus rhythm Minimal voltage criteria for LVH, may be normal variant Borderline ECG
[2017-12-21] MEDS: Pravastatin Sodium 40 MG TAB PO SCH (10:51)
[2017-12-21] MEDS: Metoprolol Succinate 100 mg XL Tab PO SCH (11:10)
[2017-12-21] MEDS: Insulin Regular 100 units/ml SC SCH ×3 (15:24→23:18)
[2017-12-21] MEDS ORDERED: Propofol 10 mg/ml Inj (20 ML) ONE (15:39)
[2017-12-21] MEDS ORDERED: Midazolam 2 MG/2 ML VIAL ONE (15:39)
[2017-12-21] MEDS ORDERED: Lidocaine 1% 5ml Abboject ONE (15:39)
[2017-12-21] MEDS ORDERED: Lidocaine 2% Jelly (5 ml) TOP ONE (15:41)
[2017-12-21] MEDS ORDERED: Sodium Chloride 0.9% 1,000 ML IV ONE (16:24)
[2017-12-21] MEDS ORDERED: GELATIN SPONGE,ABSORB/PORCINE 1 EACH SPONGE TP ONE (16:26)
--- NOTE | 2017-12-21 16:48 | PCM.SURG1 ---
<Lore Guadarrama - Last Filed: 12/21/17 16:49> Surgeon's Initial Post Op Note - Surgeon's Notes Surgeon: Dr. Dumont Geophysical Observer: Dr. Guadarrama PGY-3 Type of Anesthesia: General LMA Anesthesia Administered By: Dr. Brooke Pre-Operative Diagnosis: Perirectal Abscess Operative Findings: 75cc of purulent drainage from abscess cavity Post-Operative Diagnosis: Same Operation Performed: Drainage of Perirectal Abscess Specimen/Specimens Removed: none Estimated Blood Loss: EBL {In ML}: 5 Blood Products Given: N/A Drains Used: No Drains Post-Op Condition: Good Date of Surgery/Procedure: 12/21/17 Time of Surgery/Procedure: 16:51 <Saeid Dumont - Last Filed: 12/21/17 17:01> Surgeon's Initial Post Op Note - Surgeon's Notes Operation Performed: Examination under anesthesia, drainage of perirectal abscess Estimated Blood Loss: EBL {In ML}: 10
--- NOTE | 2017-12-21 20:30 | CT ---
Date of service: 12/21/2017 PROCEDURE: CT Abdomen and Pelvis without intravenous contrast HISTORY: LLQ pain r/o diverticulitis COMPARISON: Comparison is made with 03/08/2009 TECHNIQUE: Axial and reformatted coronal and sagittal CT images of the abdomen and pelvis were obtained without IV or oral contrast administration.. Contrast dose: 0 Radiation dose: Total exam DLP = 893.4 mGy-cm. This CT exam was performed using one or more of the following dose reduction techniques: Automated exposure control, adjustment of the mA and/or kV according to patient size, and/or use of iterative reconstruction technique. FINDINGS: LOWER THORAX: Unremarkable. LIVER: Unremarkable. No gross lesion or ductal dilatation. GALLBLADDER AND BILE DUCTS: Unremarkable. PANCREAS: Unremarkable. No gross lesion or ductal dilatation. SPLEEN: Unremarkable. ADRENALS: Unremarkable. No mass. KIDNEYS AND URETERS: Unremarkable. No hydronephrosis. No solid mass. VASCULATURE: Unremarkable. No aortic aneurysm. BOWEL: There are mild inflammatory changes at the junction of the descending and sigmoid colon may represent mild diverticulitis. There is large perianal fluid collection contains foci of air highly suspicious for abscess formation measures on the right 2 correlation 6.1 x 2.2 centimeter and in the left localization 6.5 x 2.9 centimeter. There are adjacent fat stranding around the rectum and anus. No evidence of bowel obstruction. APPENDIX: Unremarkable. Normal appendix. PERITONEUM: Unremarkable. No free fluid. No free air. LYMPH NODES: Unremarkable. No enlarged lymph nodes. BLADDER: Unremarkable. REPRODUCTIVE: Unremarkable. BONES: No acute fracture. OTHER FINDINGS: None. IMPRESSION: Mild fat stranding surrounding the proximal sigmoid colon may represent diverticulitis. Large fluid collection in the perianal region contains foci of air highly suspicious for abscess formation. Preliminary report was submitted by [facility].
--- NOTE | 2017-12-21 22:08 | RAD ---
Date of service: 12/21/2017 PROCEDURE: CHEST RADIOGRAPH, 1 VIEW HISTORY: Pre-op COMPARISON: Is made with 04/08/2027 FINDINGS: LUNGS: No evidence of new infiltrate or consolidation in the lungs. PLEURA: No pneumothorax or pleural fluid seen. CARDIOVASCULAR: Normal. OSSEOUS STRUCTURES: No significant abnormalities. VISUALIZED UPPER ABDOMEN: Normal. OTHER FINDINGS: None. IMPRESSION: No active disease.
[2017-12-22] MEDS: Piperacillin/Tazobact 3.375 GM in Sodium Chloride 0.9% 100 ML IVPB SCH ×4 (02:56→21:10)
[2017-12-22 07:04] LABS: HEMOGLOBIN 12.1 g/dL (12.0-18.0); MEAN CELL VOLUME 85.7 fl (80.0-94.0); MEAN CORPUSCULAR HEMOGLOBIN 28.7 pg (27.0-31.0); MEAN CORPUSCULAR HGB CONC 33.5 g/dL (33.0-37.0); RBC 4.22 Mil/uL (4.40-5.90); RED CELL DISTRIBUTION WIDTH 14.1 % (11.5-14.5); WHITE BLOOD COUNT 12.4 K/uL (4.8-10.8)
[2017-12-22 07:23] LABS: BLOOD UREA NITROGEN 24 mg/dl (9-20); CALCIUM 8.9 mg/dL (8.4-10.2); GFR NON-AFRICAN AMERICAN 56
--- NOTE | 2017-12-22 07:33 | CP.PCM.PN ---
<Lore Guadarrama - Last Filed: 12/22/17 07:31> Subjective - Date & Time of Evaluation Date of Evaluation: 12/22/17 Time of Evaluation: 07:31 - Subjective Subjective: Surgery: Dr. Dumont Pt seen and examined. No acute overnight events. States he feels well this morning and pain is well controlled. Pt admits to having a BM this morning and states he still has some purulent drainage from the site. Denies fevers/chills. Objective - Vital Signs/Intake and Output Vital Signs (last 24 hours): Temp Pulse Resp BP Pulse Ox 98.6 F 83 20 144/77 100 12/22/17 04:00 12/22/17 04:00 12/22/17 04:00 12/22/17 04:00 12/22/17 04:00 - Medications Medications: Current Medications Allopurinol (Zyloprim) 100 mg PO DAILY [facility] Last Admin: 12/21/17 10:51 Dose: Not Given Amlodipine Besylate (Norvasc) 5 mg PO HS [facility] Last Admin: 12/21/17 21:00 Dose: 5 mg Aspirin (Aspirin Chewable) 81 mg PO DAILY [facility] Last Admin: 12/21/17 10:50 Dose: Not Given Docusate Sodium (Colace) 100 mg PO TID [facility] Stop: 12/24/17 09:01 Doxazosin Mesylate (Cardura) 2 mg PO DAILY [facility] Last Admin: 12/21/17 10:51 Dose: Not Given Hydrochlorothiazide (Hydrodiuril) 25 mg PO DAILY [facility] Last Admin: 12/21/17 11:52 Dose: 25 mg Hydromorphone HCl (Dilaudid) 0.5 mg IVP Q4 PRN PRN Reason: Pain, moderate (4-7) Last Admin: 12/21/17 20:55 Dose: 0.5 mg Piperacillin Sod/Tazobactam (Sod 3.375 gm/ Sodium Chloride) 100 mls @ 100 mls/hr IVPB Q6H [facility]; Protocol Last Admin: 12/22/17 02:56 Dose: 100 mls/hr Sodium Chloride (Sodium Chloride 0.9%) 1,000 mls @ 100 mls/hr IV .Q10H [facility] Last Admin: 12/21/17 19:38 Dose: 100 mls/hr Vancomycin HCl 1 gm/ Sodium (Chloride) 250 mls @ 166.667 mls/hr IVPB Q12@0000,1200 [facility]; Protocol Last Admin: 12/21/17 23:57 Dose: 166.667 mls/hr Insulin Human Regular (Humulin R) 0 units SC ACCU-CHECK [facility]; Protocol Last Admin: 12/21/17 23:18 Dose: 3 units Losartan Potassium (Cozaar) 100 mg PO DAILY [facility] Last Admin: 12/21/17 11:52 Dose: 100 mg Metformin HCl (Glucophage) 1,000 mg PO BID [facility] Last Admin: 12/21/17 19:36 Dose: 1,000 mg Metoprolol Succinate (Toprol Xl) 200 mg PO DAILY [facility] Last Admin: 12/21/17 11:10 Dose: 200 mg Pravastatin Sodium (Pravachol) 40 mg PO DAILY [facility] Last Admin: 12/21/17 10:51 Dose: Not Given - Labs Labs: 12/22/17 05:45 12/22/17 05:45 PT 12.3 Seconds (9.8-13.1) 12/21/17 07:45 INR 1.1 12/21/17 07:45 APTT 26.1 Seconds (25.6-37.1) 12/21/17 07:45 - Constitutional Appears: Well, No Acute Distress - Head Exam Head Exam: ATRAUMATIC, NORMOCEPHALIC - Eye Exam Eye Exam: Normal appearance - ENT Exam ENT Exam: Mucous Membranes Moist - Respiratory Exam Respiratory Exam: NORMAL BREATHING PATTERN - Cardiovascular Exam Cardiovascular Exam: RRR - GI/Abdominal Exam GI & Abdominal Exam: Soft. absent: Tenderness - Neurological Exam Neurological Exam: Alert, Awake, Oriented x3 - Skin Skin Exam: Dry, Warm Assessment and Plan - Assessment and Plan (Free Text) Assessment: 62M with perirectal abscess s/p exam under anesthesia & drainage; POD#1 Plan: - cont IV ABX - stool softners to help with BM - pain control - d/w Dr. Jluia Guadarrama <Saeid Dumont - Last Filed: 12/22/17 17:02> Subjective - Date & Time of Evaluation Time of Evaluation: 16:35 - Subjective Subjective: Patient was seen and examined at the bedside. Agree with resident's note above. Objective - Vital Signs/Intake and Output Vital Signs (last 24 hours): Temp Pulse Resp BP Pulse Ox 99.5 F 72 18 132/82 98 12/22/17 16:18 12/22/17 16:18 12/22/17 16:18 12/22/17 16:18 12/22/17 16:18 - Medications Medications: Current Medications Allopurinol (Zyloprim) 100 mg PO DAILY [facility] Last Admin: 12/22/17 09:04 Dose: 100 mg Amlodipine Besylate (Norvasc) 5 mg PO HS [facility] Last Admin: 12/21/17 21:00 Dose: 5 mg Aspirin (Aspirin Chewable) 81 mg PO DAILY [facility] Last Admin: 12/22/17 09:02 Dose: 81 mg Docusate Sodium (Colace) 100 mg PO TID [facility] Stop: 12/24/17 09:01 Last Admin: 12/22/17 16:26 Dose: 100 mg Doxazosin Mesylate (Cardura) 2 mg PO DAILY [facility] Last Admin: 12/22/17 09:02 Dose: 2 mg Hydrochlorothiazide (Hydrodiuril) 25 mg PO DAILY [facility] Last Admin: 12/22/17 09:03 Dose: 25 mg Hydromorphone HCl (Dilaudid) 0.5 mg IVP Q4 PRN PRN Reason: Pain, moderate (4-7) Last Admin: 12/21/17 20:55 Dose: 0.5 mg Piperacillin Sod/Tazobactam (Sod 3.375 gm/ Sodium Chloride) 100 mls @ 100 mls/hr IVPB Q6H [facility]; Protocol Last Admin: 12/22/17 16:27 Dose: 100 mls/hr Sodium Chloride (Sodium Chloride 0.9%) 1,000 mls @ 100 mls/hr IV .Q10H [facility] Last Admin: 12/22/17 16:27 Dose: Not Given Vancomycin HCl 1 gm/ Sodium (Chloride) 250 mls @ 166.667 mls/hr IVPB Q12@0000,1 200 [facility]; Protocol Last Admin: 12/22/17 12:09 Dose: 166.667 mls/hr Insulin Human Regular (Humulin R) 0 units SC ACCU-CHECK [facility]; Protocol Last Admin: 12/22/17 16:26 Dose: 8 units Losartan Potassium (Cozaar) 100 mg PO DAILY [facility] Last Admin: 12/22/17 09:03 Dose: 100 mg Metformin HCl (Glucophage) 1,000 mg PO BID [facility] Last Admin: 12/22/17 16:26 Dose: 1,000 mg Metoprolol Succinate (Toprol Xl) 200 mg PO DAILY [facility] Last Admin: 12/22/17 09:04 Dose: 200 mg Pravastatin Sodium (Pravachol) 40 mg PO DAILY [facility] Last Admin: 12/22/17 09:04 Dose: 40 mg - Labs Labs: 12/22/17 05:45 12/22/17 05:45 PT 12.3 Seconds (9.8-13.1) 12/21/17 07:45 INR 1.1 12/21/17 07:45 APTT 26.1 Seconds (25.6-37.1) 12/21/17 07:45 Assessment and Plan - Assessment and Plan (Free Text) Plan: - repeat labs in am - Continue diet - Glycemic control as per medical team - Will follow
[2017-12-22] MEDS: Metoprolol Succinate 100 mg XL Tab PO SCH (09:04)
[2017-12-22] MEDS: Pravastatin Sodium 40 MG TAB PO SCH (09:04)
[2017-12-22] MEDS: Insulin Regular 100 units/ml SC SCH ×4 (10:32→23:43)
--- NOTE | 2017-12-22 12:17 | PN ---
DATE: 12/22/2017 SUBJECTIVE: The patient seen and examined. Interim events noted. Consults noted appreciated. Surgery followup and intervention noted and appreciated. The patient remains in regular medical floor. Amrik Angel MD DATE: 12/22/2017 SUBJECTIVE: The patient seen and examined. Interim events noted. The patient remains in regular medical floor status post cardiac cath intervention and I and D. The patient feels okay. He had some pain at the . No chest pain. No shortness of breath. There is no specific issue reported by nursing staff. PHYSICAL EXAMINATION: GENERAL: The patient is in no acute distress. VITAL SIGNS: Stable. HEART: S1 and S2, normal and regular. LUNGS: Good bilateral air exchange. ABDOMEN: Soft, nontender. EXTREMITIES: No edema. No calf swelling. No tenderness. No acute ischemia. TV PRODUCTION ASSISTANT: Exam is essentially unchanged. status post surgery. DIAGNOSTIC DATA: Available diagnostic data reviewed. ASSESSMENT AND PLAN: Overall, the patient's general medical condition is stable. Plan as ordered. Amrik Angel MD MTDD
[2017-12-22] MEDS: Sodium Chloride 0.9% 1,000 ML IV SCH ×2 (16:27→23:44)
[2017-12-23] MEDS: Piperacillin/Tazobact 3.375 GM in Sodium Chloride 0.9% 100 ML IVPB SCH ×4 (04:30→20:55)
[2017-12-23] MEDS: Sodium Chloride 0.9% 1,000 ML IV SCH ×2 (04:48→20:58)
[2017-12-23] MEDS: Insulin Regular 100 units/ml SC SCH ×4 (06:32→23:00)
[2017-12-23 07:05] LABS: HEMOGLOBIN 11.7 g/dL (12.0-18.0); MEAN CELL VOLUME 85.2 fl (80.0-94.0); MEAN CORPUSCULAR HEMOGLOBIN 28.6 pg (27.0-31.0); MEAN CORPUSCULAR HGB CONC 33.6 g/dL (33.0-37.0); RBC 4.1 Mil/uL (4.40-5.90); RED CELL DISTRIBUTION WIDTH 14.5 % (11.5-14.5)
[2017-12-23 07:21] LABS: ALB/GLOB RATIO 0.9 (1.0-2.1); ALBUMIN 3.2 g/dL (3.5-5.0); ALT/SGPT 24 U/L (21-72); AST/SGOT 14 U/L (17-59); BLOOD UREA NITROGEN 17 mg/dl (9-20); CALCIUM 8.6 mg/dL (8.4-10.2); GFR NON-AFRICAN AMERICAN > 60
--- NOTE | 2017-12-23 07:27 | OP ---
PROCEDURE DATE: 12/21/2017 PREOPERATIVE DIAGNOSIS: Perirectal abscess. POSTOPERATIVE DIAGNOSIS: Perirectal abscess. PROCEDURE: Examination under anesthesia and wash out of the abscess cavity. SURGEON: Saeid Dumont MD CONSERVATION EDUCATOR: Lore Guadarrama DO ANESTHESIOLOGIST: Dr. Brooke. ANESTHESIA: General, LMA intubation. IV FLUIDS: Crystalloids. ESTIMATED BLOOD LOSS: 10 mL. INTRAOPERATIVE FINDINGS: Spontaneously drained abscess into the distal rectum. SPECIMEN: Wound culture. BRIEF HISTORY: Mr. Casiano is a very pleasant 62-year-old gentleman who presented to the hospital complaining of severe perianal and perirectal pain for the duration of one week. 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 All the risks and benefits of the procedure were explained to the patient. The patient and I had a full understanding of all the risks and benefits involved. Informed consent was obtained and the patient was taken to the operating room for the above stated procedure. DESCRIPTION OF PROCEDURE: The patient was brought into the operating room and placed supine on the operating table. Bilateral Flowtron boots were applied to the patient's lower extremities. After successful induction of anesthesia, and successful intubation by the Anesthesia team, the patient's perianal area was prepped with Betadine and draped in a standard surgical fashion. Prior to the beginning of the procedure, time out was called in the room and everyone in the room were in agreement. It appeared that the patient already started draining spontaneously the anus. Subsequent to that, using digital rectal examination, the rectal vault was examined and there appeared to be a hole from the rupture of the abscess into the distal rectum. Upon further investigation, I was able to squeeze approximately 75 mL of purulent materials. Wound cultures were obtained and the patient's rectum and abscess cavities were copiously irrigated with sterile saline and fluid was suctioned out. At this point in time, I did not feel the need do any incision, because the patient already drained the abscesses spontaneously into his distal rectum. At this point in time, for hemostasis, a rolled up Gelfoam was placed into the rectal vault, and subsequent to that, patient's perianal area was washed and dried; and the patient was placed supine on the operating table. Subsequent to that, was successfully extubated by the anesthesia team and transferred to the stretcher, taken to the recovery room in stable condition. At the end of the procedure, all instrument counts, needles and sponges were correct. Saeid Dumont MD
--- NOTE | 2017-12-23 08:47 | PN ---
DATE: 12/23/2017 SUBJECTIVE: The patient is seen and examined. Interim events noted. The patient remains in regular medical floor. Surgical followup and intervention noted and appreciated. The patient still had some pain last night and also had some purulent discharge, but had bowel movements. No chest pain or shortness of breath. No ascites . PHYSICAL EXAMINATION: GENERAL: The patient is no acute distress. VITAL SIGNS: Stable. HEART: S1 and S2, normal and regular. LUNGS: Good bilateral air exchange. ABDOMEN: Soft and nontender. EXTREMITIES: No edema. No calf swelling. No tenderness. No acute ischemia. CENTRAL NERVOUS SYSTEM: Essentially unchanged. RECTAL: Surgical site is clean, but still has discharge. DIAGNOSTIC DATA: Available diagnostic data reviewed. Urine culture showed gram negative bacilli. Sensitivity and identification is pending. ASSESSMENT AND PLAN: Overall, the patient is clinically stable and afebrile, but still has purulent discharge and some pain. Plan as ordered. Case and plan discussed with the patient. Amrik Angel MD
[2017-12-23] MEDS: Pravastatin Sodium 40 MG TAB PO SCH (08:58)
[2017-12-23] MEDS: Metoprolol Succinate 100 mg XL Tab PO SCH (08:59)
--- NOTE | 2017-12-23 09:27 | HP ---
INCOMPLETE DICTATION CHIEF COMPLAINT: Buttocks pain. HISTORY OF PRESENT ILLNESS: The patient is a 62-year-old male, known case of diabetes, hypertension, elevated cholesterol who was having in the buttocks, mainly on the right side. The patient was brought to the emergency room and was found to have anal abscess and was admitted for further management. REVIEW OF SYSTEMS: Positive for pain in the buttocks. Review of systems otherwise is negative for headaches, dizziness, syncope, loss of consciousness, chest and shortness of breath, nausea, vomiting, diarrhea, constipation. No new joint or extremity pain. Review of systems positive for generalized malaise, fatigue, tiredness, fever, or swelling. Review of systems of all other organ systems are unremarkable. PAST MEDICAL HISTORY: Significant for diabetes, hypertension, elevated cholesterol. PAST SURGICAL HISTORY: Unremarkable. PERSONAL HISTORY: The patient is a nonsmoker, nondrinker, no substance abuse. MEDICATIONS: The patient is on multiple medications which is as per reconciliation sheet which was reviewed. ALLERGIES: THE PATIENT IS NOT ALLERGIC TO ANY MEDICATION. FAMILY HISTORY: Noncontributory. PHYSICAL EXAMINATION: GENERAL: Well-built, well-nourished, 62-year-old male, in no acute distress. VITAL SIGNS: Respirations 18, blood pressure 130/63. HEENT: Pupils reacting to light. No JVD. No thyromegaly. No lymphadenopathy. HEART EXAM: S1, S2, normal and regular. LUNGS: ____ ABDOMEN: Soft, nontender. No organomegaly. No fluid. Bowel sounds are present and normal. The patient does have discoloration and induration on the buttocks mainly on the right side close to anal orifice consistent with cellulitis and abscess. EXTREMITIES: No edema. No calf swelling. No tenderness. No acute ischemia. QUOTER EXAM: Essentially unchanged. There is no sign of any acute gross focal motor or sensory or neurological deficits. DIAGNOSTIC DATA: Available diagnostic data reviewed. ADMITTING IMPRESSION: Perianal abscess, type 2 diabetes with hypoglycemia, hypertension, diabetes, elevated cholesterol. PLAN: As ordered. Case and plan discussed with the patient. Amrik Angel MD cc: [facility] # [phone]
--- NOTE | 2017-12-23 10:11 | CP.PCM.PN ---
Subjective - Date & Time of Evaluation Date of Evaluation: 12/23/17 Time of Evaluation: 10:10 - Subjective Subjective: General Surgery Pt seen and examined this AM. He reports the pain has been better controlled from his rectum and he has had little purulent output. He states yesterday he felt feverish, however his Tmax from yesterday's vitals was 99.5F. His blood glucose remains elevated. Pt reports he takes Humulin 25 units BID and Lantus 20 units at bedtime daily. He reports having a soft BM without difficulty secondary to rectal pain. Labs and vitals noted. fingersticks remain elevated. With the highest at 384. WBC 9 from 12.4 PE Gen: Pt asleep, easily arousable Skin: warm and dry Cardio: s1s2 RRR Lungs: CTA bilaterally Abd: Soft, NTND Rectal: (+) scant purulent drainage, (+) mild tenderness of perirectal region with minimal induration. Extr: (-) calf tenderness bilaterally A/P Perirectal abscess s/p exam under anesthesia & drainage; POD#2 Pt cleared for discharge from surgical standpoint with Augmentin home. Pt's blood glucose needs to be controlled for optimal wound healing. Medicine to manage uncontrolled BG. Objective - Vital Signs/Intake and Output Vital Signs (last 24 hours): Temp Pulse Resp BP Pulse Ox 98.3 F 83 19 154/76 H 100 12/23/17 09:11 12/23/17 09:11 12/23/17 09:11 12/23/17 09:11 12/23/17 09:11 - Medications Medications: Current Medications Allopurinol (Zyloprim) 100 mg PO DAILY [facility] Last Admin: 12/23/17 08:59 Dose: 100 mg Amlodipine Besylate (Norvasc) 5 mg PO HS [facility] Last Admin: 12/22/17 21:10 Dose: 5 mg Aspirin (Aspirin Chewable) 81 mg PO DAILY [facility] Last Admin: 12/23/17 08:57 Dose: 81 mg Docusate Sodium (Colace) 100 mg PO TID [facility] Stop: 12/24/17 09:01 Last Admin: 12/23/17 08:57 Dose: 100 mg Doxazosin Mesylate (Cardura) 2 mg PO DAILY [facility] Last Admin: 12/23/17 08:57 Dose: 2 mg Hydrochlorothiazide (Hydrodiuril) 25 mg PO DAILY [facility] Last Admin: 12/23/17 08:58 Dose: 25 mg Hydromorphone HCl (Dilaudid) 0.5 mg IVP Q4 PRN PRN Reason: Pain, moderate (4-7) Last Admin: 12/22/17 21:11 Dose: 0.5 mg Piperacillin Sod/Tazobactam (Sod 3.375 gm/ Sodium Chloride) 100 mls @ 100 mls/hr IVPB Q6H [facility]; Protocol Last Admin: 12/23/17 08:56 Dose: 100 mls/hr Sodium Chloride (Sodium Chloride 0.9%) 1,000 mls @ 100 mls/hr IV .Q10H [facility] Last Admin: 12/23/17 04:48 Dose: 100 mls/hr Vancomycin HCl 1 gm/ Sodium (Chloride) 250 mls @ 166.667 mls/hr IVPB Q12@ 0000,1200 [facility]; Protocol Last Admin: 12/23/17 00:52 Dose: 166.667 mls/hr Insulin Detemir (Levemir) 20 units SC [facility] Insulin Human Regular (Humulin R) 0 units SC ACCU-CHECK [facility]; Protocol Last Admin: 12/23/17 06:32 Dose: 4 units Losartan Potassium (Cozaar) 100 mg PO DAILY [facility] Last Admin: 12/23/17 08:58 Dose: 100 mg Metformin HCl (Glucophage) 1,000 mg PO BID [facility] Last Admin: 12/23/17 08:58 Dose: 1,000 mg Metoprolol Succinate (Toprol Xl) 200 mg PO DAILY [facility] Last Admin: 12/23/17 08:59 Dose: 200 mg Pravastatin Sodium (Pravachol) 40 mg PO DAILY [facility] Last Admin: 12/23/17 08:58 Dose: 40 mg - Labs Labs: 12/23/17 05:15 12/23/17 05:15 PT 12.3 Seconds (9.8-13.1) 12/21/17 07:45 INR 1.1 12/21/17 07:45 APTT 26.1 Seconds (25.6-37.1) 12/21/17 07:45
[2017-12-23] MEDS ORDERED: Glucagon Recombinant 1 mg Inj IM PRN (11:45)
[2017-12-23] MEDS ORDERED: Dextrose 50% SYRINGE Inj (50 ml) IV PRN (11:45)
[2017-12-23] MEDS: Insulin Lispro (humaLOG) 100 Units/ml Inj SC SCH ×2 (12:32→16:08)
--- NOTE | 2017-12-23 20:55 | CP.PCM.PN ---
Subjective - Date & Time of Evaluation Date of Evaluation: 12/23/17 Time of Evaluation: 07:00 - Subjective Subjective: GENERAL SURGERY PROGRESS NOTE FOR DR. HEREDIA Patient seen and examined at bedside. He is doing well, no complaints. Has had small amount of drainage. Objective - Vital Signs/Intake and Output Vital Signs (last 24 hours): Temp Pulse Resp BP Pulse Ox 97.9 F 81 18 149/86 100 12/23/17 16:21 12/23/17 16:21 12/23/17 16:21 12/23/17 16:21 12/23/17 16:21 - Medications Medications: Current Medications Allopurinol (Zyloprim) 100 mg PO DAILY [facility] Last Admin: 12/23/17 08:59 Dose: 100 mg Amlodipine Besylate (Norvasc) 5 mg PO HS [facility] Last Admin: 12/22/17 21:10 Dose: 5 mg Aspirin (Aspirin Chewable) 81 mg PO DAILY [facility] Last Admin: 12/23/17 08:57 Dose: 81 mg Dextrose (Dextrose 50% Inj) 0 ml IV STAT PRN; Protocol PRN Reason: Hypoglycemia Protocol Dextrose (Glutose 15) 0 gm PO ONCE PRN; Protocol PRN Reason: Hypoglycemia Protocol Docusate Sodium (Colace) 100 mg PO TID [facility] Stop: 12/24/17 09:01 Last Admin: 12/23/17 16:07 Dose: 100 mg Doxazosin Mesylate (Cardura) 2 mg PO DAILY [facility] Last Admin: 12/23/17 08:57 Dose: 2 mg Glucagon (Glucagen Diagnostic Kit) 0 mg IM STAT PRN; Protocol PRN Reason: Hypoglycemia Protocol Hydrochlorothiazide (Hydrodiuril) 25 mg PO DAILY [facility] Last Admin: 12/23/17 08:58 Dose: 25 mg Hydromorphone HCl (Dilaudid) 0.5 mg IVP Q4 PRN PRN Reason: Pain, moderate (4-7) Last Admin: 12/22/17 21:11 Dose: 0.5 mg Piperacillin Sod/Tazobactam (Sod 3.375 gm/ Sodium Chloride) 100 mls @ 100 mls/hr IVPB Q6H [facility]; Protocol Last Admin: 12/23/17 16:07 Dose: 100 mls/hr Sodium Chloride (Sodium Chloride 0.9%) 1,000 mls @ 100 mls/hr IV .Q10H [facility] Last Admin: 12/23/17 04:48 Dose: 100 mls/hr Vancomycin HCl 1 gm/ Sodium (Chloride) 250 mls @ 166.667 mls/hr IVPB Q12@0000,1 200 [facility]; Protocol Last Admin: 12/23/17 12:30 Dose: 166.667 mls/hr Insulin Detemir (Levemir) 10 units SC HS [facility] Insulin Human Lispro (Humalog) 5 units SC AC [facility] Last Admin: 12/23/17 16:08 Dose: 5 units Insulin Human Regular (Humulin R) 0 units SC ACCU-CHECK [facility]; Protocol Last Admin: 12/23/17 16:08 Dose: 10 units Losartan Potassium (Cozaar) 100 mg PO DAILY [facility] Last Admin: 12/23/17 08:58 Dose: 100 mg Metformin HCl (Glucophage) 1,000 mg PO BID [facility] Last Admin: 12/23/17 16:07 Dose: 1,000 mg Metoprolol Succinate (Toprol Xl) 200 mg PO DAILY [facility] Last Admin: 12/23/17 08:59 Dose: 200 mg Pravastatin Sodium (Pravachol) 40 mg PO DAILY [facility] Last Admin: 12/23/17 08:58 Dose: 40 mg - Labs Labs: 12/23/17 05:15 12/23/17 05:15 PT 12.3 Seconds (9.8-13.1) 12/21/17 07:45 INR 1.1 12/21/17 07:45 APTT 26.1 Seconds (25.6-37.1) 12/21/17 07:45 Assessment and Plan - Assessment and Plan (Free Text) Assessment: 62M with perirectal abscess s/p exam under anesthesia & drainage; POD#2 Plan: - Doing well post op - Clear for discharge from surgery standpoint - Follow up with Dr. Dumont in his office in 1-2 weeks - Discussed plan with Dr. Marli rodriguez PGY-4
[2017-12-23] MEDS ORDERED: Insulin Detemir 100 Units/ml Inj SC SCH ×2 (22:00)
[2017-12-24] MEDS: Piperacillin/Tazobact 3.375 GM in Sodium Chloride 0.9% 100 ML IVPB SCH ×4 (03:30→22:51)
[2017-12-24 05:58] LABS: HEMOGLOBIN 12.4 g/dL (12.0-18.0); MEAN CORPUSCULAR HEMOGLOBIN 28.6 pg (27.0-31.0); MEAN CORPUSCULAR HGB CONC 33.6 g/dL (33.0-37.0); RBC 4.34 Mil/uL (4.40-5.90); RED CELL DISTRIBUTION WIDTH 14.3 % (11.5-14.5); WHITE BLOOD COUNT 8.8 K/uL (4.8-10.8)
[2017-12-24 06:13] LABS: BLOOD UREA NITROGEN 10 mg/dl (9-20); CALCIUM 8.9 mg/dL (8.4-10.2); GFR NON-AFRICAN AMERICAN > 60
[2017-12-24] MEDS: Insulin Regular 100 units/ml SC SCH ×4 (08:00→22:51)
[2017-12-24] MEDS: Pravastatin Sodium 40 MG TAB PO SCH (08:34)
[2017-12-24] MEDS: Metoprolol Succinate 100 mg XL Tab PO SCH (08:35)
[2017-12-24] MEDS: Insulin Lispro (humaLOG) 100 Units/ml Inj SC SCH ×4 (08:37→17:00)
--- NOTE | 2017-12-24 11:05 | CP.PCM.CON ---
History of Present Illness - History of Present Illness History of Present Illness: 62M with DM presents with worsening rectal pain x [address] in ED showed horse showed perirectal abscess Went to OR for drainage and ID consulted for antibiotic management PMH: HTN, cholesterol, DM PSH: eyes NKDA Social: no etoh/tobacco/drugs Fhx: non-contributory Review of Systems - Review of Systems All systems: reviewed and no additional remarkable complaints except - Constitutional Constitutional: As Per HPI - EENT Eyes: absent: As Per HPI, Blind Spots, Blurred Vision, Change in Vision, Decreased Night Vision, Diplopia, Discharge, Dry Eye, Exophthalmos, Floaters, Irritation, Itchy Eyes, Loss of Peripheral Vision, Pain, Photophobia, Requires Corrective Lenses, Sees Flashes, Spots in Vision, Tunnel Vision, Other Visual Disturbances, Loss of Vision, Other Ears: absent: As Per HPI, Decreased Hearing, Ear Discharge, Ear Pain, Tinnitus, Abnormal Hearing, Disequilibrium, Dizziness, Other Nose/Mouth/Throat: absent: As Per HPI, Epistaxis, Nasal Congestion, Nasal Discharge, Nasal Obstruction, Nasal Trauma, Nose Pain, Post Nasal Drip, Sinus Pain, Sinus Pressure, Bleeding Gums, Change in Voice, Dental Pain, Dry Mouth, Dysphagia, Halitosis, Hoarsness, Lip Swelling, Mouth Lesions, Mouth Pain, Odynophagia, Sore Throat, Throat Swelling, Tongue Swelling, Facial Pain, Neck Pain, Neck Mass, Other - Cardiovascular Cardiovascular: absent: As Per HPI, Acrocyanosis, Chest Pain, Chest Pain at Rest, Chest Pain with Activity, Claudication, Diaphoresis, Dyspnea, Dyspnea on Exertion, Edema, Irregular Heart Rhythm, Pain Radiating to Arm/Neck/Jaw, Leg Edema, Leg Ulcers, Lightheadedness, Orthopnea, Palpitations, Paroxysmal Nocturnal Dyspnea, Pedal Edema, Radiating Pain, Rapid Heart Rate, Slow Heart Rate, Syncope, Other - Respiratory Respiratory: absent: As Per HPI, Cough, Dyspnea, Hemoptysis, Dyspnea on Exertion, Wheezing, Snoring, Stridor, Pain on Inspiration, Chest Congestion, Excessive Mucous Production, Change in Mucous Color, Pain with Coughing, Other - Gastrointestinal Gastrointestinal: absent: As Per HPI, Abdominal Pain, Belching, Bloating, Change in Bowel Habits, Change in Stool Character, Coffee Ground Emesis, Constipation, Cramping, Diarrhea, Dyspepsia, Dysphagia, Early Satiety, Excessive Flatus, Fecal Incontinence, Heartburn, Hematemesis, Hematochezia, Loose Stools, Melena, Nausea, Odynophagia, Temesmus, Vomiting, Other - Genitourinary Genitourinary: absent: As Per HPI, Change in Urinary Stream, Difficulty Urinating, Dysuria, Flank Pain, Hematuria, Pyuria, Nocturia, Urinary Incontinence, Urinary Frequency, Urinary Hesitance, Urinary Urgency, Voiding Freq/Small Amts, Freq UTI, Hx Renal/Bladder Calculi, Hx /Renal Surgery, Bladder Distension, Other - Musculoskeletal Musculoskeletal: As Per HPI. absent: Abnormal Gait, Arthralgias, Atrophy, Back Pain, Deformity, Joint Swelling, Limited Range of Motion, Loss of Height, Muscle Cramps, Muscle Weakness, Myalgias, Neck Pain, Numbness, Radiating Pain into Fry b, Stiffness, Tingling, Other - Integumentary Integumentary: As Per HPI, Skin Pain, Wounds - Neurological Neurological: absent: As Per HPI, Abnormal Gait, Abnormal Hearing, Abnormal Movements, Abnormal Speech, Behavioral Changes, Burning Sensations, Confusion, Convulsions, Disequilibrium, Dizziness, Numbness, Focal Weakness, Frequent Falls, Headaches, Lack of Coordination, Loss of Vision, Memory Loss, Paresthesias, Radicular Pain, Restless Legs, Sensory Deficit, Syncope, Tingling, Tremor, Vertigo, Weakness, Other Visual Disturbances, Other - Psychiatric Psychiatric: absent: As Per HPI, Abnormal Sleep Pattern, Anhedonia, Anxiety, Auditory Hallucinations, Behavioral Changes, Change in Appetite, Change in Libido, Confusion, Depression, Difficulty Concentrating, Hallucinations, Homicidal Ideation, Hopelessness, Irritability, Memory Loss, Mood Swings, Panic Attacks, Paranoia, Suicidal Ideation, Visual Hallucinations, Tactile Hallucinations, Other - Endocrine Endocrine: absent: As Per HPI, Change in Body Appearance, Change in Libido, Cold Intolorance, Deepening of Voice, Excessive Sweating, Fatigue, Flushing, Heat Intolorance, Increase in Ring/Shoe/Hat Size, Palpitations, Polydipsia, Polyphagia, Polyuria, Other - Hematologic/Lymphatic Hematologic: absent: As Per HPI, Easy Bleeding, Easy Bruising, Lymphadenopathy, Other Past Patient History - Past Medical History & Family History Past Medical History?: Yes - Past Social History Alcohol: None Drugs: Denies - CARDIAC Hx Cardia Arrhythmia: Yes Hx Hypercholesterolemia: Yes Hx Hypertension: Yes - PULMONARY Hx Respiratory Disorders: No - NEUROLOGICAL Hx Neurological Disorder: No - HEENT Hx HEENT Problems: No - RENAL Hx Chronic Kidney Disease: No - ENDOCRINE/METABOLIC Hx Endocrine Disorders: Yes (DM) Hx Diabetes Mellitus Type 2: Yes - HEMATOLOGICAL/ONCOLOGICAL Hx Blood Disorders: No - INTEGUMENTARY Hx Dermatological Problems: No - MUSCULOSKELETAL/RHEUMATOLOGICAL Hx Musculoskeletal Disorders: No Hx Falls: No - GASTROINTESTINAL Hx Gastrointestinal Disorders: No - GENITOURINARY/GYNECOLOGICAL Hx Genitourinary Disorders: No - PSYCHIATRIC Hx Psychophysiologic Disorder: No Hx Substance Use: No - SURGICAL HISTORY Hx Surgeries: Yes Other/Comment: RT FOOT SURGERY - ANESTHESIA Hx Anesthesia: Yes Hx Anesthesia Reactions: No Hx Malignant Hyperthermia: No Meds Allergies/Adverse Reactions: Allergies Allergy/AdvReac Type Severity Reaction Status Date / Time No Known Allergies Allergy Verified 12/20/17 20:50 - Medications Medications: Current Medications Allopurinol (Zyloprim) 100 mg PO DAILY [facility] Last Admin: 12/24/17 08:34 Dose: 100 mg Amlodipine Besylate (Norvasc) 5 mg PO HS [facility] Last Admin: 12/23/17 21:01 Dose: 5 mg Aspirin (Aspirin Chewable) 81 mg PO DAILY [facility] Last Admin: 12/24/17 08:35 Dose: 81 mg Dextrose (Dextrose 50% Inj) 0 ml IV STAT PRN; Protocol PRN Reason: Hypoglycemia Protocol Dextrose (Glutose 15) 0 gm PO ONCE PRN; Protocol PRN Reason: Hypoglycemia Protocol Doxazosin Mesylate (Cardura) 2 mg PO DAILY [facility] Last Admin: 12/24/17 08:33 Dose: 2 mg Glucagon (Glucagen Diagnostic Kit) 0 mg IM STAT PRN; Protocol PRN Reason: Hypoglycemia Protocol Hydrochlorothiazide (Hydrodiuril) 25 mg PO DAILY [facility] Last Admin: 12/24/17 08:33 Dose: 25 mg Hydromorphone HCl (Dilaudid) 0.5 mg IVP Q4 PRN PRN Reason: Pain, moderate (4-7) Last Admin: 12/22/17 21:11 Dose: 0.5 mg Piperacillin Sod/Tazobactam (Sod 3.375 gm/ Sodium Chloride) 100 mls @ 100 mls/hr IVPB Q6H [facility]; Protocol Last Admin: 12/24/17 08:41 Dose: 100 mls/hr Sodium Chloride (Sodium Chloride 0.9%) 1,000 mls @ 100 mls/hr IV .Q10H [facility] Last Admin: 12/23/17 04:48 Dose: 100 mls/hr Vancomycin HCl 1 gm/ Sodium (Chloride) 250 mls @ 166.667 mls/hr IVPB Q12@0000,1200 [facility]; Protocol Last Admin: 12/23/17 23:46 Dose: 166.667 mls/hr Insulin Detemir (Levemir) 10 units SC HS [facility] Last Admin: 12/23/17 22:36 Dose: 10 u Insulin Human Lispro (Humalog) 5 units SC AC [facility] Last Admin: 12/24/17 08:37 Dose: 5 units Insulin Human Regular (Humulin R) 0 units SC ACCU-CHECK [facility]; Protocol Last Admin: 12/24/17 08:00 Dose: 2 units Losartan Potassium (Cozaar) 100 mg PO DAILY [facility] Last Admin: 12/24/17 08:34 Dose: 100 mg Metformin HCl (Glucophage) 1,000 mg PO BID [facility] Last Admin: 12/24/17 08:34 Dose: 1,000 mg Metoprolol Succinate (Toprol Xl) 200 mg PO DAILY [facility] Last Admin: 12/24/17 08:35 Dose: 200 mg Pravastatin Sodium (Pravachol) 40 mg PO DAILY [facility] Last Admin: 12/24/17 08:34 Dose: 40 mg Physical Exam - Constitutional Appears: Non-toxic, Chronically Ill - Head Exam Head Exam: NORMOCEPHALIC - Eye Exam Eye Exam: PERRL. absent: Scleral icterus - ENT Exam ENT Exam: Mucous Membranes Dry - Neck Exam Neck exam: Negative for: Lymphadenopathy - Respiratory Exam Respiratory Exam: Decreased Breath Sounds - Cardiovascular Exam Cardiovascular Exam: REGULAR RHYTHM - GI/Abdominal Exam GI & Abdominal Exam: Diminished Bowel Sounds, Soft - Rectal Exam Rectal Exam: Deferred - Exam Exam: NORMAL INSPECTION - Extremities Exam Extremities exam: Positive for: pedal pulses present. Negative for: calf tenderness, pedal edema, tenderness - Back Exam Back exam: absent: CVA tenderness (L), CVA tenderness (R) - Neurological Exam Neurological exam: Alert, CN II-XII Intact, Oriented x3, Reflexes Normal - Psychiatric Exam Psychiatric exam: Normal Mood - Skin Skin Exam: Dry Additional comments: redness warmth and swelling in perirectal area min drainage from wound Results - Vital Signs Recent Vital Signs: Last Vital Signs Temp 98 F 12/24/17 08:28 Pulse 76 12/24/17 08:35 Resp 20 12/24/17 08:28 BP 162/78 H 12/24/17 08:35 Pulse Ox 100 12/24/17 08:28 - Labs Result Diagrams: 12/24/17 05:40 12/24/17 05:40 Labs: Laboratory Results - last 24 hr 12/23/17 12/23/17 12/24/17 15:36 22:06 05:35 WBC RBC Hgb Hct MCV MCH MCHC RDW Plt Count Sodium Potassium Chloride Carbon Dioxide Anion Gap BUN Creatinine Est GFR ( Amer) Est GFR (Non-Af Amer) POC Glucose (mg/dL) 378 H 140 H 163 H Random Glucose Calcium Vancomycin Trough 12/24/17 12/24/17 12/24/17 05:40 05:40 09:56 WBC 8.8 RBC 4.34 L Hgb 12.4 Hct 36.9 MCV 85.0 MCH 28.6 MCHC 33.6 RDW 14.3 Plt Count 284 Sodium 139 Potassium 4.3 Chloride 105 Carbon Dioxide 28 Anion Gap 10 BUN 10 Creatinine 1.1 Est GFR ( Amer) > 60 Est GFR (Non-Af Amer) > 60 POC Glucose (mg/dL) Random Glucose 181 H Calcium 8.9 Vancomycin Trough 12.8 H Assessment & Plan (1) Abdominal pain Status: Acute (2) Hyperglycemia Status: Acute (3) Perianal abscess Status: Acute - Assessment and Plan (Free Text) Assessment: 62 yo male with septic presentation secondary to perirectalabscess NO apparent fistula Concern for MRSA agree with current IV rx May consider PO option but will need to follow up culture results Need GI follow up upon discharge
--- NOTE | 2017-12-24 11:13 | CP.PCM.PCO ---
Assessment & Plan - Assessment and Plan (Free Text) Assessment: Spoke to micro for f/u on perianal abscess wound cx; so far cultures + rare wbc, mod GNR, Rare gm pos cocci, final report and ID will be available by tomorrow above d/w , will continue IV abx today and follow up with final cx in am as per recommendations
--- NOTE | 2017-12-24 13:14 | PN ---
DATE: 12/24/2017 SUBJECTIVE: The patient seen and examined. Interim events noted. Consults noted and appreciated. Surgery followup and intervention noted and appreciated. The patient feels much better. No discharge. Pain has resolved. PHYSICAL EXAMINATION: GENERAL: The patient is in no acute distress. VITAL SIGNS: Stable. HEART EXAM: S1, S2, normal and regular. LUNGS: Good bilateral air exchange. ABDOMEN: Soft and nontender. I and D site is clean. CUT OFF SAWYER EXAM: Essentially unchanged. EXTREMITY EXAM: No edema. No calf swelling. DIAGNOSTIC DATA: Available diagnostic data reviewed. Urine culture is positive although it is only less than 10,000 colonies. Other cultures are pending or negative so far. ASSESSMENT AND PLAN: Overall, the patient is clinically stable. Plan as ordered. Amrik Angel MD
[2017-12-24] MEDS: Sodium Chloride 0.9% 1,000 ML IV SCH (14:43)
[2017-12-24 16:20] VITALS: O2SAT 99
[2017-12-24] MEDS ORDERED: Insulin Detemir 100 Units/ml Inj SC SCH (22:00)
[2017-12-25 00:17] VITALS: RESP 20
[2017-12-25] MEDS: Piperacillin/Tazobact 3.375 GM in Sodium Chloride 0.9% 100 ML IVPB SCH ×2 (03:12→09:09)
[2017-12-25 06:24] LABS: HEMOGLOBIN 12.6 g/dL (12.0-18.0); MEAN CELL VOLUME 84.2 fl (80.0-94.0); MEAN CORPUSCULAR HGB CONC 34.5 g/dL (33.0-37.0); RBC 4.34 Mil/uL (4.40-5.90); RED CELL DISTRIBUTION WIDTH 14.5 % (11.5-14.5); WHITE BLOOD COUNT 8.6 K/uL (4.8-10.8)
[2017-12-25 07:30] LABS: ALB/GLOB RATIO 0.9 (1.0-2.1); ALBUMIN 3.4 g/dL (3.5-5.0); ALT/SGPT 31 U/L (21-72); AST/SGOT 28 U/L (17-59); BLOOD UREA NITROGEN 12 mg/dl (9-20); CALCIUM 9.3 mg/dL (8.4-10.2); GFR NON-AFRICAN AMERICAN > 60
[2017-12-25] MEDS: Insulin Lispro (humaLOG) 100 Units/ml Inj SC SCH ×2 (08:15→12:02)
[2017-12-25 08:33] VITALS: BP 152/86; PULSE 70; TEMP 97.9
--- NOTE | 2017-12-25 08:49 | PN ---
DATE: 12/25/2017 SUBJECTIVE: The patient was seen and examined. Interim events noted. Consults noted and appreciated. Infectious disease followup and intervention noted and appreciated. The patient remains in regular medical floor. The patient feels okay. Pain improved. The patient is having normal bowel movement. No discharge. No fever. PHYSICAL EXAMINATION: GENERAL: The patient is in no acute distress. VITAL SIGNS: Stable. HEART: S1, S2 normal. Regular. LUNGS: Good bilateral air exchange. ABDOMEN: Soft, nontender. Abscess site is clean. CENTRAL NERVOUS SYSTEM: Essentially unchanged. EXTREMITIES: No edema. No calf swelling. No tenderness. DIAGNOSTIC DATA: Available diagnostic data reviewed. Wound culture reviewed. Blood cultures negative. Wound culture, identification and sensitivity pending. Plan as ordered. Case and plan discussed with the patient. Amrik Angel MD
[2017-12-25] MEDS: Insulin Regular 100 units/ml SC SCH ×2 (09:05→12:04)
[2017-12-25] MEDS: Pravastatin Sodium 40 MG TAB PO SCH (09:07)
[2017-12-25] MEDS: Metoprolol Succinate 100 mg XL Tab PO SCH (09:07)
--- NOTE | 2017-12-25 13:18 | CP.PCM.PN ---
Subjective - Date & Time of Evaluation Date of Evaluation: 12/25/17 Time of Evaluation: 07:00 - Subjective Subjective: improving Objective - Vital Signs/Intake and Output Vital Signs (last 24 hours): Temp Pulse Resp BP Pulse Ox 97.9 F 70 20 152/86 H 99 12/25/17 08:32 12/25/17 09:07 12/25/17 08:32 12/25/17 09:07 12/25/17 08:32 - Medications Medications: Current Medications Allopurinol (Zyloprim) 100 mg PO DAILY [facility] Last Admin: 12/25/17 09:09 Dose: 100 mg Amlodipine Besylate (Norvasc) 5 mg PO HS [facility] Last Admin: 12/24/17 22:50 Dose: 5 mg Aspirin (Aspirin Chewable) 81 mg PO DAILY [facility] Last Admin: 12/25/17 09:00 Dose: 81 mg Dextrose (Dextrose 50% Inj) 0 ml IV STAT PRN; Protocol PRN Reason: Hypoglycemia Protocol Dextrose (Glutose 15) 0 gm PO ONCE PRN; Protocol PRN Reason: Hypoglycemia Protocol Doxazosin Mesylate (Cardura) 2 mg PO DAILY [facility] Last Admin: 12/25/17 09:00 Dose: 2 mg Glucagon (Glucagen Diagnostic Kit) 0 mg IM STAT PRN; Protocol PRN Reason: Hypoglycemia Protocol Hydrochlorothiazide (Hydrodiuril) 25 mg PO DAILY [facility] Last Admin: 12/25/17 09:07 Dose: 25 mg Hydromorphone HCl (Dilaudid) 0.5 mg IVP Q4 PRN PRN Reason: Pain, moderate (4-7) Last Admin: 12/22/17 21:11 Dose: 0.5 mg Piperacillin Sod/Tazobactam (Sod 3.375 gm/ Sodium Chloride) 100 mls @ 100 mls/hr IVPB Q6H [facility]; Protocol Last Admin: 12/25/17 09:09 Dose: 100 mls/hr Sodium Chloride (Sodium Chloride 0.9%) 1,000 mls @ 100 mls/hr IV .Q10H [facility] Last Admin: 12/24/17 14:43 Dose: Not Given Vancomycin HCl 1 gm/ Sodium (Chloride) 250 mls @ 166.667 mls/hr IVPB Q12@0000,1200 [facility]; Protocol Last Admin: 12/25/17 00:12 Dose: 166.667 mls/hr Insulin Detemir (Levemir) 20 units SC HS [facility] Last Admin: 12/24/17 22:50 Dose: 20 u Insulin Human Lispro (Humalog) 7 units SC AC [facility] Last Admin: 12/25/17 12:02 Dose: 7 units Insulin Human Regular (Humulin R) 0 units SC ACCU-CHECK [facility]; Protocol Last Admin: 12/25/17 12:04 Dose: 10 units Losartan Potassium (Cozaar) 100 mg PO DAILY [facility] Last Admin: 12/25/17 09:00 Dose: 100 mg Metformin HCl (Glucophage) 1,000 mg PO BID [facility] Last Admin: 12/25/17 09:01 Dose: 1,000 mg Metoprolol Succinate (Toprol Xl) 200 mg PO DAILY [facility] Last Admin: 12/25/17 09:07 Dose: 200 mg Pravastatin Sodium (Pravachol) 40 mg PO DAILY [facility] Last Admin: 12/25/17 09:07 Dose: 40 mg - Labs Labs: 12/25/17 05:35 12/25/17 05:35 PT 12.3 Seconds (9.8-13.1) 12/21/17 07:45 INR 1.1 12/21/17 07:45 APTT 26.1 Seconds (25.6-37.1) 12/21/17 07:45 - Constitutional Appears: Non-toxic, Chronically Ill - Head Exam Head Exam: NORMOCEPHALIC - Eye Exam Eye Exam: absent: Scleral icterus - ENT Exam ENT Exam: Mucous Membranes Dry - Neck Exam Neck Exam: absent: Lymphadenopathy - Respiratory Exam Respiratory Exam: Decreased Breath Sounds - Cardiovascular Exam Cardiovascular Exam: REGULAR RHYTHM - GI/Abdominal Exam GI & Abdominal Exam: Distended - Rectal Exam Rectal Exam: Deferred - Exam Exam: NORMAL INSPECTION - Extremities Exam Extremities Exam: absent: Pedal Edema - Back Exam Back Exam: absent: CVA tenderness (L), CVA tenderness (R) - Neurological Exam Neurological Exam: Alert, Awake Assessment and Plan (1) Abdominal pain Status: Acute (2) Hyperglycemia Status: Acute (3) Perianal abscess Status: Acute - Assessment and Plan (Free Text) Assessment: d/c on po augmantin
--- NOTE | 2017-12-25 13:27 | CP.PCM.PCO ---
Assessment/Plan - Assessment/Plan Assessment (Free Text): Pt stable, cleared by Sx for d/c. Final wound culture results discussed with Dr. Hagen, pt to be d/c'd home on Agumentin 875mg BID x 7 days. Rx given. Pt states he has and takes insulin Humulin 25 units qAM and 20 units qPM and Lantus 20 units qHS at home. Pt advised to resume same as well as all other home meds as per med rec.
== END 2017-12-25 14:35 | disposition home or self-care (01) | DRG 395 ==
LOC: H.ER 20:46 → H.ERHOLD 12-21 02:51 → H.MEDSURG1 12-21 06:20
PROVIDERS: ADMIT Internal Medicine; ATTEND Internal Medicine
PROC: 3E10X8Z Irrigation of Skin and Mucous Membranes using Irrigating Substance (ICD-10-PCS; principal; 2017-12-21 15:00)
DX: K61.31 Horseshoe abscess (principal); E11.65 Type 2 diabetes mellitus with hyperglycemia; E78.00 Pure hypercholesterolemia, unspecified; M10.9 Gout, unspecified; E11.40 Type 2 diabetes mellitus with diabetic neuropathy, unspecified; I10 Essential (primary) hypertension